=== PATIENT | male | born 1950 | race Two or more races ===

== ENCOUNTER 2016-10-14 09:04 | Inpatient (IN) | payer OTHER ==
[2016-10-14 09:11] VITALS: BMI 19.3
--- NOTE | 2016-10-14 15:14 | HP ---
CIWA Score - CIWA Score Nausea/Vomitin-No Nausea/No Vomiting Muscle Tremors: 4-Moderate,w/Arms Extend Anxiety: 4-Mod. Anxious/Guarded Agitation: 4-Moderately Restless Paroxysmal Sweats: 1-Minimal Palms Moist Orientation: 0-Oriented Tacttile Disturbances: 3-Moderate Itch/Numb/Burn Auditory Disturbances: 0-None Visual Disturbances: 0-None Headache: 0-None Present CIWA-Ar Total Score: 16 Admission ROS BHS - HPI Chief Complaint: DETOX TX FOR ALCOHOL DEPENDENCE Allergies/Adverse Reactions: Allergies Allergy/AdvReac Type Severity Reaction Status Date / Time No Known Allergies Allergy Verified 10/14/16 12:02 History of Present Illness: 66 Y/O MALE OF DECENT WITH A HX OF ALCOHOL AND COCAINE DEPENDENCE SEEKING DETOX TX. Exam Limitations: No Limitations - Ebola screening Have you traveled outside of the country in the last 21 days: No Have you had contact with anyone from an Ebola affected area: No Have you been sick,other than usual withdrawal symptoms: No - Review of Systems Constitutional: Chills, Loss of Appetite, Night Sweats, Changes in sleep, Unintentional Wgt. Loss EENT: reports: Blurred Vision, Tearing Respiratory: reports: No Symptoms reported Cardiac: reports: Lightheadedness GI: reports: Indigestion : reports: No Symptoms Reported Musculoskeletal: reports: No Symptoms Reported Integumentary: reports: No Symptoms Reported Neuro: reports: Headache, Tremors, Unsteady Gait, Dizziness Endocrine: reports: No Symptoms Reported Hematology: reports: Anemia (NOT CURRENTLY ON MED) Psychiatric: reports: Orientated x3, Anxious, Depressed Other Systems: Reviewed and Negative Patient History - Patient Medical History Hx Anemia: Yes (NO CURRENT MED) Hx Asthma: No Hx Chronic Obstructive Pulmonary Disease (COPD): No Hx Cardiac Disorders: Yes (CAD with CABGx3 in 1996 stent x2) Hx Hypertension: Yes (ON MED) Hx Hypercholesterolemia: Yes (LIPITOR) Hx Pacemaker: No HX Cerebrovascular Accident: No Hx Seizures: No Hx Diabetes: Yes (Type II DM-ON MED) Hx Gastrointestinal Disorders: Yes (HEARTBURN) Hx Genitourinary Disorders: No Hx Sexually Transmitted Disorders: No (DENIES) Hx Renal Disease (ESRD): No Hx Thyroid Disease: No Hx Human Immunodeficiency Virus (HIV): No (NEGATIVE HX) Hx Hepatitis C: Yes (RECENTLY TREATED X 3 MONTHS COURSE) Hx Depression: Yes Hx Suicide Attempt: No Hx Schizophrenia: No - Patient Surgical History Past Surgical History: Yes Hx Cardiac Surgery: Yes (CABGx3 in 1996 stent in 2003 and in 2010) Anesthesia Reaction: No - PPD History Previous Implant?: Yes Documented Results: Negative w/o proof Implanted On Prior [facility] Admission?: No PPD to be Administered?: Yes - Reproductive History Patient is a Female of Child Bearing Age (11 -55 yrs old): No (MALE) Patient : (N/A) - Smoking Cessation Smoking history: Current some day smoker Have you smoked in the past 12 months: Yes Aproximately how many cigarettes per day: 1 Hx Chewing Tobacco Use: No Initiated information on smoking cessation: Yes 'Breaking Loose' booklet given: 10/14/16 - Substance & Tx. History Hx Alcohol Use: Yes (VODKA) Hx Substance Use: (CRACK) Substance Use Type: Alcohol, Cocaine Hx Substance Use Treatment: Yes (LAST TX AT [facility]) - Substances Abused Alcohol Route: Oral Frequency: 3-6 times per week Amount used: 1 PINT VODKA Age of first use: 51 Date of Last Use: 10/12/16 Crack Route: Smoking Frequency: 3-6 times per week Amount used: $30 Age of first use: 34 Date of Last Use: 10/12/16 Family Disease History - Family Disease History Family Disease History: Diabetes: Grandparent (MGF-), Mother (HTN- ), Heart Disease: Father Admission Physical Exam BHS - Vital Signs Vital Signs: Vital Signs - 24 hr 10/14/16 09:10 Temperature 97.4 F L Pulse Rate 83 Respiratory 18 Rate Blood Pressure 145/76 - Physical General Appearance: Yes: Moderate Distress, Thin, Anxious HEENTM: Yes: EOMI, Normocephalic, DALE, Pharynx Normal Respiratory: Yes: Chest Non-Tender, Lungs Clear, Normal Breath Sounds, No Respiratory Distress Neck: Yes: No masses,lesions,Nodules, Supple, Trachea in good position Breast: Yes: Breast Exam Deferred Cardiology: Yes: Regular Rhythm, Regular Rate, S1, S2 Abdominal: Yes: Normal Bowel Sounds, Non Tender, Soft Genitourinary: Yes: Other (N/C) Musculoskeletal: Yes: full range of Motion, Gait Steady Extremities: Yes: Normal Range of Motion, Non-Tender Neurological: Yes: financial cost analyst II-XII NML intact, Fully Oriented, Alert Integumentary: Yes: Dry, Warm Lymphatic: Yes: Within Normal Limits - Diagnostic (1) Alcohol dependence with uncomplicated withdrawal Current Visit: Yes Status: Acute (2) Cocaine dependence, uncomplicated Current Visit: Yes Status: Acute (3) Type 2 diabetes mellitus Current Visit: Yes Status: Acute Qualifiers: Diabetes mellitus complication status: without complication (4) Hypertension Current Visit: Yes Status: Chronic Qualifiers: Hypertension type: essential hypertension Qualified Code(s): I10 - Essential (primary) hypertension (5) Hyperlipidemia Current Visit: Yes Status: Chronic (6) Hx of hepatitis C Current Visit: Yes Status: Chronic (7) Hx of CABG Current Visit: Yes Status: Chronic (8) S/P angioplasty with stent Current Visit: Yes Status: Chronic Cleared for Admission S - Detox or Rehab [facility] Level of Care: Medically Managed Detox Regimen/Protocol: Librium S Breath Alcohol Content Breath Alcohol Content: 0 Urine Drug Screen - Results Drug Screen Negative: No Urine Drug Screen Results: MAHAD-Cocaine
[2016-10-14] MEDS ORDERED: LOPERAMIDE HCL 2 MG CAPSULE PO PRN (15:29)
[2016-10-14] MEDS ORDERED: ACETAMINOPHEN 325 MG TABLET (FP) PO PRN (15:29)
[2016-10-14] MEDS ORDERED: P-EPHED 60MG/TRIPROLIDI 2.5MG TABLET PO PRN (15:29)
[2016-10-14] MEDS ORDERED: MAGNESIUM CITRATE 300 ML BOTTLE PO PRN (15:29)
[2016-10-14] MEDS ORDERED: guaiFENesin/D-METHORPHAN HB 10 ML UNIT-DOSE CUPS PO PRN (15:29)
[2016-10-14] MEDS ORDERED: IBUPROFEN 400 MG TABLET (FP) PO PRN (15:29)
[2016-10-14] MEDS ORDERED: NICOTINE POLACRILEX 2 MG GUM BUC PRN (15:29)
[2016-10-14] MEDS ORDERED: MAGNESIUM HYDROX 2400MG/30ML ORAL SUSPENSION 30 ML CUP PO PRN (15:29)
[2016-10-14] MEDS ORDERED: MAG HYDROX/AL HYDROX/SIMETH 30 ML UNIT-DOSE CUP PO PRN (15:29)
[2016-10-14] MEDS ORDERED: MENTHOL/PHENOL 1 EACH UD MM PRN (15:29)
[2016-10-14] MEDS ORDERED: chlordiazePOXIDE HCL 25 MG CAPSULE PO PRN (15:29)
[2016-10-14] MEDS ORDERED: chlordiazePOXIDE HCL 25 MG CAPSULE PO ONE (15:48)
[2016-10-14] MEDS: sitaGLIPtin PHOSPHATE 25 MG TABLET (FP) PO SCH (17:36)
[2016-10-14] MEDS: metFORMIN HCL 500 MG TABLET (FP) PO SCH (17:36)
[2016-10-14] MEDS: chlordiazePOXIDE HCL 25 MG CAPSULE PO SCH ×2 (17:36→22:22)
[2016-10-14 18:19] LABS: HIV 1 & 2 AB NEGATIVE; HIV 1 AGp24 NEGATIVE
[2016-10-14] MEDS: METOPROLOL TARTRATE 50 MG TABLET (FP) PO SCH (21:06)
[2016-10-14] MEDS ORDERED: diphenhydrAMINE HCL 50 MG CAPSULE PO PRN (22:00)
[2016-10-14] MEDS: THIAMINE HCL 100 MG TABLET (FP) PO SCH (22:22)
[2016-10-15] MEDS: sitaGLIPtin PHOSPHATE 25 MG TABLET (FP) PO SCH ×2 (07:34→17:27)
[2016-10-15] MEDS: metFORMIN HCL 500 MG TABLET (FP) PO SCH ×2 (07:34→17:26)
[2016-10-15] MEDS: chlordiazePOXIDE HCL 25 MG CAPSULE PO SCH ×4 (07:36→22:29)
[2016-10-15 07:42] LABS: URINE APPEARANCE SLCLOUDY; URINE BILIRUBIN NEGATIVE (NEGATIVE); URINE BLOOD NEGATIVE (NEGATIVE); URINE COLOR AMBER; URINE GLUCOSE (UA) NEGATIVE (NEGATIVE); URINE KETONE NEGATIVE (NEGATIVE); URINE LEUK ESTERASE NEGATIVE (NEGATIVE); URINE NITRITE NEGATIVE (NEGATIVE); URINE PROTEIN NEGATIVE (NEGATIVE); URINE UROBILINOGEN NEGATIVE mg/dL (0.2-1.0)
--- NOTE | 2016-10-15 09:26 | EKG ---
Test Reason : Blood Pressure : / mmHG Vent. Rate : 058 BPM Atrial Rate : 058 BPM P-R Int : 178 ms QRS Dur : 126 ms QT Int : 476 ms P-R-T Axes : 074 067 152 degrees QTc Int : 467 ms SINUS BRADYCARDIA LEFT BUNDLE BRANCH BLOCK ABNORMAL ECG NO PREVIOUS ECGS AVAILABLE Confirmed by CHAVEZ SANTIAGO MD ([id number]) on 10/15/2016 9:25:31 AM Referred By: Confirmed By:CHAVEZ SANTIAGO MD
--- NOTE | 2016-10-15 09:59 | CONSULT ---
[facility] Psychiatric Consult - Data Date of interview: 10/15/16 Admission source: [facility] Identifying data: Ms Michael is a 66 years old single male, unemployed on food stamp, domiciled seeking detox treatmentfor alcohol and cocaine Substance Abuse History: Reports history of alcohol and cocaine use. He started drinking alcohol at age 51, consumes one pint of vodka 3-6 times weekly. Last drink on 10/12/16. He started smoking cravk cocaine at age 34, consumes $30 worth 3-6times weekly. Last smoked on 10/12/16 Medical History: Significant for history of Anenia, CAD/CABG x2 with stent x2, HTN, Hyperlipidemia, GERD, type 2 DM, Hep C Psychiatric History: Reports being prescribed Paxil 10-12 years ago by a psychiatrist at [facility] for depression & anxiety. Claims that he stopped taking medication after 5 months due to relapse on alcohol and cocaine. Denies history of previous psychiatric hospitalization or suicidal attempt. At present, reports feeling depressed, anxious and sleeping porly. Requests to be ordered Ambien to which he responded well in the past Psychiatric Findings - Problem List ([place] 1, 2,3) (1) Substance induced mood disorder Current Visit: Yes Status: Acute (2) Alcohol dependence with uncomplicated withdrawal Current Visit: Yes Status: Acute (3) Cocaine dependence, uncomplicated Current Visit: Yes Status: Acute (4) Type 2 diabetes mellitus Current Visit: Yes Status: Acute Qualifiers: Diabetes mellitus complication status: without complication (5) Hx of CABG Current Visit: Yes Status: Chronic (6) Hx of hepatitis C Current Visit: Yes Status: Chronic (7) Hyperlipidemia Current Visit: Yes Status: Chronic (8) Hypertension Current Visit: Yes Status: Chronic Qualifiers: Hypertension type: essential hypertension Qualified Code(s): I10 - Essential (primary) hypertension (9) S/P angioplasty with stent Current Visit: Yes Status: Chronic - Initial Treatment Plan Initial Treatment Plan: 1) Start Ambien 10 mg po HS prn for insomnia. 2) Continue inpatient detoxification
[2016-10-15 10:19] LABS: MCH 32.4 pg (25.7-33.7); MCHC 33.9 g/dl (32.0-35.9); MEAN CELL VOLUME 95.5 fl (80-96); MEAN PLT VOLUME 9.7 fl (7.5-11.1); PLATELET COUNT 158 K/MM3 (134-434); RDW 13.3 % (11.9-15.9); WHITE BLOOD COUNT 6.8 K/mm3 (4.0-10.0)
[2016-10-15] MEDS: ATORVASTATIN CA 40 MG TABLET (FP) PO SCH (10:28)
[2016-10-15] MEDS: CLOPIDOGREL BISULFATE 75 MG TABLET (FP) PO SCH (10:28)
[2016-10-15] MEDS: METOPROLOL TARTRATE 50 MG TABLET (FP) PO SCH ×2 (10:28→22:29)
[2016-10-15] MEDS: RANOLAZINE E.R. 500 MG TABLET (FP) PO SCH (10:29)
[2016-10-15] MEDS: PRENATAL VITAMINS W/ FOLIC ACID TABLET (FP) PO SCH (10:29)
[2016-10-15] MEDS: ASPIRIN 81 MG CHEWABLE TABLETS PO SCH (10:29)
[2016-10-15] MEDS: ISOSORBIDE MONONITRATE 30 MG TAB.SR.24H (FP) PO SCH (10:29)
[2016-10-15 10:36] LABS: ALK PHOS 43 U/L (45-117); ANION GAP 11 (8-16); BILIRUBIN,TOTAL 0.7 mg/dL (0.2-1.0); CALCIUM 9.3 mg/dL (8.5-10.1); CO2 25 mmol/L (21-32); CREATININE 0.9 mg/dL (0.7-1.3); GLUCOSE,RANDOM 123 mg/dL (74-106); SGOT/AST 19 U/L (15-37); SGPT/ALT 27 U/L (12-78); TOT PROT 7.4 g/dl (6.4-8.2)
[2016-10-15 10:39] LABS: SICKLE CELL SCREEN NEGATIVE (NEGATIVE)
--- NOTE | 2016-10-15 11:23 | PN ---
[facility] CIWA - CIWA Score Nausea/Vomitin-No Nausea/No Vomiting Muscle Tremors: 4-Moderate,w/Arms Extend Anxiety: 4-Mod. Anxious/Guarded Agitation: 4-Moderately Restless Paroxysmal Sweats: 1-Minimal Palms Moist Orientation: 0-Oriented Tacttile Disturbances: 3-Moderate Itch/Numb/Burn Auditory Disturbances: 0-None Visual Disturbances: 0-None Headache: 0-None Present CIWA-Ar Total Score: 16 S Progress Note (SOAP) Subjective: C/O DIARRHEA, TREMORS, SWEATS, FATIGUE. Objective: 10/15/16 11:22 Vital Signs Temperature 96.2 F L 10/15/16 06:13 Pulse Rate 65 10/15/16 09:19 Respiratory Rate 18 10/15/16 09:19 Blood Pressure 143/71 10/15/16 09:19 O2 Sat by Pulse Oximetry (%) Laboratory Last Values WBC 6.8 K/mm3 (4.0-10.0) 10/15/16 06:00 RBC 3.92 M/mm3 (4.00-5.60) L 10/15/16 06:00 Hgb 12.7 GM/dL (11.7-16.9) 10/15/16 06:00 Hct 37.4 % (35.4-49) 10/15/16 06:00 MCV 95.5 fl (80-96) 10/15/16 06:00 MCH 32.4 pg (25.7-33.7) 10/15/16 06:00 MCHC 33.9 g/dl (32.0-35.9) 10/15/16 06:00 RDW 13.3 % (11.9-15.9) 10/15/16 06:00 Plt Count 158 K/MM3 (134-434) 10/15/16 06:00 MPV 9.7 fl (7.5-11.1) 10/15/16 06:00 Sickle Cell Screen Negative (NEGATIVE) 10/15/16 06:00 Sodium 137 mmol/L (136-145) 10/15/16 06:00 Potassium 4.5 mmol/L (3.5-5.1) 10/15/16 06:00 Chloride 101 mmol/L (98-107) 10/15/16 06:00 Carbon Dioxide 25 mmol/L (21-32) 10/15/16 06:00 Anion Gap 11 (8-16) 10/15/16 06:00 BUN 21 mg/dL (7-18) H 10/15/16 06:00 Creatinine 0.9 mg/dL (0.7-1.3) 10/15/16 06:00 Creat Clearance w eGFR > 60 (>60) 10/15/16 06:00 POC Glucometer 233 UNITS (()) 10/15/16 10:53 Random Glucose 123 mg/dL (74-106) H 10/15/16 06:00 Calcium 9.3 mg/dL (8.5-10.1) 10/15/16 06:00 Total Bilirubin 0.7 mg/dL (0.2-1.0) 10/15/16 06:00 AST 19 U/L (15-37) 10/15/16 06:00 ALT 27 U/L (12-78) 10/15/16 06:00 Alkaline Phosphatase 43 U/L (45-117) L 10/15/16 06:00 Total Protein 7.4 g/dl (6.4-8.2) 10/15/16 06:00 Albumin 4.0 g/dl (3.4-5.0) 10/15/16 06:00 Urine Color Anay 10/15/16 07:25 Urine Appearance Slcloudy 10/15/16 07:25 Urine pH 5.0 (5.0-8.0) 10/15/16 07:25 Urine Protein Negative (NEGATIVE) 10/15/16 07:25 Urine Glucose (UA) Negative (NEGATIVE) 10/15/16 07:25 Urine Ketones Negative (NEGATIVE) 10/15/16 07:25 Urine Blood Negative (NEGATIVE) 10/15/16 07:25 Urine Nitrite Negative (NEGATIVE) 10/15/16 07:25 Urine Bilirubin Negative (NEGATIVE) 10/15/16 07:25 Urine Urobilinogen Negative mg/dL (0.2-1.0) 10/15/16 07:25 Ur Leukocyte Esterase Negative (NEGATIVE) 10/15/16 07:25 HIV 1&2 Antibody Screen Negative 10/14/16 13:30 HIV P24 Antigen Negative 10/14/16 13:30 Assessment: 10/15/16 11:23 WITHDRAWAL SX Plan: CONTINUE DETOX
[2016-10-15] MEDS ORDERED: sitaGLIPtin PHOSPHATE 25 MG TABLET (FP) PO ONE (12:22)
[2016-10-15] MEDS ORDERED: metFORMIN HCL 500 MG TABLET (FP) PO ONE (12:22)
[2016-10-15] MEDS: THIAMINE HCL 100 MG TABLET (FP) PO SCH (22:29)
[2016-10-15] MEDS: ZOLPIDEM TARTRATE 10 MG TABLET (PARK CARE ONLY) PO PRN (22:30)
[2016-10-16] MEDS: chlordiazePOXIDE HCL 25 MG CAPSULE PO SCH ×2 (05:51→10:23)
[2016-10-16] MEDS: metFORMIN HCL 500 MG TABLET (FP) PO SCH ×2 (07:41→17:30)
[2016-10-16] MEDS: sitaGLIPtin PHOSPHATE 25 MG TABLET (FP) PO SCH ×2 (07:41→18:09)
[2016-10-16] MEDS: METOPROLOL TARTRATE 50 MG TABLET (FP) PO SCH ×2 (10:22→22:22)
[2016-10-16] MEDS: RANOLAZINE E.R. 500 MG TABLET (FP) PO SCH (10:22)
[2016-10-16] MEDS: PANTOPRAZOLE 40 MG TABLET (FP) PO SCH (10:23)
[2016-10-16] MEDS: CLOPIDOGREL BISULFATE 75 MG TABLET (FP) PO SCH (10:23)
[2016-10-16] MEDS: ATORVASTATIN CA 40 MG TABLET (FP) PO SCH (10:23)
[2016-10-16] MEDS: ISOSORBIDE MONONITRATE 30 MG TAB.SR.24H (FP) PO SCH (10:23)
[2016-10-16] MEDS: ASPIRIN 81 MG CHEWABLE TABLETS PO SCH (10:23)
[2016-10-16] MEDS: PRENATAL VITAMINS W/ FOLIC ACID TABLET (FP) PO SCH (10:24)
--- NOTE | 2016-10-16 15:06 | PN ---
[facility] CIWA - CIWA Score Nausea/Vomitin-No Nausea/No Vomiting Muscle Tremors: 4-Moderate,w/Arms Extend Anxiety: 4-Mod. Anxious/Guarded Agitation: 2 Paroxysmal Sweats: 4-Forehead w/Sweat Beads Orientation: 0-Oriented Tacttile Disturbances: 0-None Auditory Disturbances: 2-Mild Harshness/Frighten Visual Disturbances: 2-Mild Sensitivity Headache: 0-None Present CIWA-Ar Total Score: 18 S Progress Note (SOAP) Subjective: Interrupted sleep, Tremors, Anxious. Objective: PT. A & O X 3, OBSERVED AMBULATING ON UNIT. NO ACUTE DISTRESS. 10/16/16 15:04 Vital Signs Temperature 97.9 F 10/16/16 13:44 Pulse Rate 70 10/16/16 13:44 Respiratory Rate 18 10/16/16 13:44 Blood Pressure 94/60 10/16/16 13:44 O2 Sat by Pulse Oximetry (%) Laboratory Tests 10/14/16 10/14/16 10/14/16 12:23 13:30 17:35 WBC RBC Hgb Hct MCV MCH MCHC RDW Plt Count MPV Sickle Cell Screen Sodium Potassium Chloride Carbon Dioxide Anion Gap BUN Creatinine Creat Clearance w eGFR POC Glucometer 191 137 Random Glucose Calcium Total Bilirubin AST ALT Alkaline Phosphatase Total Protein Albumin Urine Color Urine Appearance Urine pH Ur Specific [place] Urine Protein Urine Glucose (UA) Urine Ketones Urine Blood Urine Nitrite Urine Bilirubin Urine Urobilinogen Ur Leukocyte Esterase RPR Titer HIV 1&2 Antibody Screen Negative HIV P24 Antigen Negative 10/15/16 10/15/16 10/15/16 05:47 06:00 06:00 WBC 6.8 RBC 3.92 L Hgb 12.7 Hct 37.4 MCV 95.5 MCH 32.4 MCHC 33.9 RDW 13.3 Plt Count 158 MPV 9.7 Sickle Cell Screen Negative Sodium 137 Potassium 4.5 Chloride 101 Carbon Dioxide 25 Anion Gap 11 BUN 21 H Creatinine 0.9 Creat Clearance w eGFR > 60 POC Glucometer 64 Random Glucose 123 H Calcium 9.3 Total Bilirubin 0.7 AST 19 ALT 27 Alkaline Phosphatase 43 L Total Protein 7.4 Albumin 4.0 Urine Color Urine Appearance Urine pH Ur Specific [place] Urine Protein Urine Glucose (UA) Urine Ketones Urine Blood Urine Nitrite Urine Bilirubin Urine Urobilinogen Ur Leukocyte Esterase RPR Titer HIV 1&2 Antibody Screen HIV P24 Antigen 10/15/16 10/15/16 10/15/16 06:00 07:25 07:26 WBC RBC Hgb Hct MCV MCH MCHC RDW Plt Count MPV Sickle Cell Screen Sodium Potassium Chloride Carbon Dioxide Anion Gap BUN Creatinine Creat Clearance w eGFR POC Glucometer 110 Random Glucose Calcium Total Bilirubin AST ALT Alkaline Phosphatase Total Protein Albumin Urine Color Anay Urine Appearance Slcloudy Urine pH 5.0 Ur Specific [place] 1.010 Urine Protein Negative Urine Glucose (UA) Negative Urine Ketones Negative Urine Blood Negative Urine Nitrite Negative Urine Bilirubin Negative Urine Urobilinogen Negative Ur Leukocyte Esterase Negative RPR Titer Nonreactive HIV 1&2 Antibody Screen HIV P24 Antigen 10/15/16 10/15/16 10/15/16 10:53 16:25 21:31 WBC RBC Hgb Hct MCV MCH MCHC RDW Plt Count MPV Sickle Cell Screen Sodium Potassium Chloride Carbon Dioxide Anion Gap BUN Creatinine Creat Clearance w eGFR POC Glucometer 233 145 120 Random Glucose Calcium Total Bilirubin AST ALT Alkaline Phosphatase Total Protein Albumin Urine Color Urine Appearance Urine pH Ur Specific [place] Urine Protein Urine Glucose (UA) Urine Ketones Urine Blood Urine Nitrite Urine Bilirubin Urine Urobilinogen Ur Leukocyte Esterase RPR Titer HIV 1&2 Antibody Screen HIV P24 Antigen 10/16/16 10/16/16 05:49 11:30 WBC RBC Hgb Hct MCV MCH MCHC RDW Plt Count MPV Sickle Cell Screen Sodium Potassium Chloride Carbon Dioxide Anion Gap BUN Creatinine Creat Clearance w eGFR POC Glucometer 116 199 Random Glucose Calcium Total Bilirubin AST ALT Alkaline Phosphatase Total Protein Albumin Urine Color Urine Appearance Urine pH Ur Specific [place] Urine Protein Urine Glucose (UA) Urine Ketones Urine Blood Urine Nitrite Urine Bilirubin Urine Urobilinogen Ur Leukocyte Esterase RPR Titer HIV 1&2 Antibody Screen HIV P24 Antigen labs noted. Assessment: 10/16/16 15:04 WITHDRAWAL SYMPTOMS. Plan: CONTINUE DETOX.
[2016-10-16] MEDS: chlordiazePOXIDE 5 MG CAPSULE PO SCH ×2 (18:08→22:21)
--- NOTE | 2016-10-16 21:25 | PN ---
[facility] Progress Note Note: call by nurse to evaluate patient with chest pain on arrival patient stated that he feel better pain subsided patient has triple by pass CABG in 1996 has angioplasty with stent in 2010,2011,08/04 all procedure done in [facility] follow up by patient access registrar regular at [facility],also has dm,htn,hyperlipidemia alcohol and cocaine dependence smoke 1 cigarette/day family history of heart problem ekg nsr lvh prolong qt no change from 10/14/16 pulse oximeter is 92 bp 141/75,p72,r18.t96.3 patient is lying comfortable in bed alert,oriented x3 heent normal neck no jvd heart normal heart sound lung clear,no wheezing abdomen soft,no distension,no pain or tenderness no calf tenderness impression chest pain treatment o2 by nasal canula 2l/min patient refused patient did not want to go for evaluation in er stated pain subsided close monitoring if pain recur need to be transferred to er for evaluation blood for cpk,troponin in am continue detox
[2016-10-16] MEDS: THIAMINE HCL 100 MG TABLET (FP) PO SCH (22:21)
[2016-10-16] MEDS: ZOLPIDEM TARTRATE 10 MG TABLET (PARK CARE ONLY) PO PRN (22:22)
[2016-10-17] MEDS: chlordiazePOXIDE 5 MG CAPSULE PO SCH ×2 (05:40→10:18)
[2016-10-17] MEDS: sitaGLIPtin PHOSPHATE 25 MG TABLET (FP) PO SCH ×2 (07:45→17:14)
[2016-10-17] MEDS: metFORMIN HCL 500 MG TABLET (FP) PO SCH ×2 (07:45→17:14)
[2016-10-17] MEDS: RANOLAZINE E.R. 500 MG TABLET (FP) PO SCH (10:18)
[2016-10-17] MEDS: ATORVASTATIN CA 40 MG TABLET (FP) PO SCH (10:18)
[2016-10-17] MEDS: PRENATAL VITAMINS W/ FOLIC ACID TABLET (FP) PO SCH (10:18)
[2016-10-17] MEDS: ASPIRIN 81 MG CHEWABLE TABLETS PO SCH (10:18)
[2016-10-17] MEDS: METOPROLOL TARTRATE 50 MG TABLET (FP) PO SCH ×2 (10:18→22:17)
[2016-10-17] MEDS: PANTOPRAZOLE 40 MG TABLET (FP) PO SCH (10:19)
[2016-10-17] MEDS: ISOSORBIDE MONONITRATE 30 MG TAB.SR.24H (FP) PO SCH (10:19)
[2016-10-17] MEDS: CLOPIDOGREL BISULFATE 75 MG TABLET (FP) PO SCH (10:20)
[2016-10-17 10:40] LABS: CPK 44 IU/L (39-308); TROPONIN I < 0.02 ng/ml (0.00-0.05)
--- NOTE | 2016-10-17 14:22 | PN ---
[facility] Progress Note (SOAP) Subjective: Tremor, chills, weakness, interrupted sleep, unsteady gait (refused cane, doesn' t want brief writer to order cane) Objective: 10/17/16 14:17 Last Vital Signs Temp Pulse Resp BP Pulse Ox 98.1 F 76 18 105/69 10/17/16 13:41 10/17/16 13:41 10/17/16 13:41 10/17/16 13:41 Laboratory Tests 10/14/16 10/14/16 10/14/16 12:23 13:30 17:35 WBC RBC Hgb Hct MCV MCH MCHC RDW Plt Count MPV Sickle Cell Screen Sodium Potassium Chloride Carbon Dioxide Anion Gap BUN Creatinine Creat Clearance w eGFR POC Glucometer 191 137 Random Glucose Calcium Total Bilirubin AST ALT Alkaline Phosphatase Creatine Kinase Troponin I Total Protein Albumin Urine Color Urine Appearance Urine pH Ur Specific [place] Urine Protein Urine Glucose (UA) Urine Ketones Urine Blood Urine Nitrite Urine Bilirubin Urine Urobilinogen Ur Leukocyte Esterase RPR Titer HIV 1&2 Antibody Screen Negative HIV P24 Antigen Negative 10/15/16 10/15/16 10/15/16 05:47 06:00 06:00 WBC 6.8 RBC 3.92 L Hgb 12.7 Hct 37.4 MCV 95.5 MCH 32.4 MCHC 33.9 RDW 13.3 Plt Count 158 MPV 9.7 Sickle Cell Screen Negative Sodium 137 Potassium 4.5 Chloride 101 Carbon Dioxide 25 Anion Gap 11 BUN 21 H Creatinine 0.9 Creat Clearance w eGFR > 60 POC Glucometer 64 Random Glucose 123 H Calcium 9.3 Total Bilirubin 0.7 AST 19 ALT 27 Alkaline Phosphatase 43 L Creatine Kinase Troponin I Total Protein 7.4 Albumin 4.0 Urine Color Urine Appearance Urine pH Ur Specific [place] Urine Protein Urine Glucose (UA) Urine Ketones Urine Blood Urine Nitrite Urine Bilirubin Urine Urobilinogen Ur Leukocyte Esterase RPR Titer HIV 1&2 Antibody Screen HIV P24 Antigen 10/15/16 10/15/16 10/15/16 06:00 07:25 07:26 WBC RBC Hgb Hct MCV MCH MCHC RDW Plt Count MPV Sickle Cell Screen Sodium Potassium Chloride Carbon Dioxide Anion Gap BUN Creatinine Creat Clearance w eGFR POC Glucometer 110 Random Glucose Calcium Total Bilirubin AST ALT Alkaline Phosphatase Creatine Kinase Troponin I Total Protein Albumin Urine Color Anay Urine Appearance Slcloudy Urine pH 5.0 Ur Specific [place] 1.010 Urine Protein Negative Urine Glucose (UA) Negative Urine Ketones Negative Urine Blood Negative Urine Nitrite Negative Urine Bilirubin Negative Urine Urobilinogen Negative Ur Leukocyte Esterase Negative RPR Titer Nonreactive HIV 1&2 Antibody Screen HIV P24 Antigen 10/15/16 10/15/16 10/15/16 10:53 16:25 21:31 WBC RBC Hgb Hct MCV MCH MCHC RDW Plt Count MPV Sickle Cell Screen Sodium Potassium Chloride Carbon Dioxide Anion Gap BUN Creatinine Creat Clearance w eGFR POC Glucometer 233 145 120 Random Glucose Calcium Total Bilirubin AST ALT Alkaline Phosphatase Creatine Kinase Troponin I Total Protein Albumin Urine Color Urine Appearance Urine pH Ur Specific [place] Urine Protein Urine Glucose (UA) Urine Ketones Urine Blood Urine Nitrite Urine Bilirubin Urine Urobilinogen Ur Leukocyte Esterase RPR Titer HIV 1&2 Antibody Screen HIV P24 Antigen 10/16/16 10/16/16 10/16/16 05:49 11:30 16:23 WBC RBC Hgb Hct MCV MCH MCHC RDW Plt Count MPV Sickle Cell Screen Sodium Potassium Chloride Carbon Dioxide Anion Gap BUN Creatinine Creat Clearance w eGFR POC Glucometer 116 199 165 Random Glucose Calcium Total Bilirubin AST ALT Alkaline Phosphatase Creatine Kinase Troponin I Total Protein Albumin Urine Color Urine Appearance Urine pH Ur Specific [place] Urine Protein Urine Glucose (UA) Urine Ketones Urine Blood Urine Nitrite Urine Bilirubin Urine Urobilinogen Ur Leukocyte Esterase RPR Titer HIV 1&2 Antibody Screen HIV P24 Antigen 10/17/16 10/17/16 10/17/16 05:39 07:45 07:45 WBC RBC Hgb Hct MCV MCH MCHC RDW Plt Count MPV Sickle Cell Screen Sodium Potassium Chloride Carbon Dioxide Anion Gap BUN Creatinine Creat Clearance w eGFR POC Glucometer 105 Random Glucose Calcium Total Bilirubin AST ALT Alkaline Phosphatase Creatine Kinase 42 44 Troponin I < 0.02 Total Protein Albumin Urine Color Urine Appearance Urine pH Ur Specific [place] Urine Protein Urine Glucose (UA) Urine Ketones Urine Blood Urine Nitrite Urine Bilirubin Urine Urobilinogen Ur Leukocyte Esterase RPR Titer HIV 1&2 Antibody Screen HIV P24 Antigen 10/17/16 11:05 WBC RBC Hgb Hct MCV MCH MCHC RDW Plt Count MPV Sickle Cell Screen Sodium Potassium Chloride Carbon Dioxide Anion Gap BUN Creatinine Creat Clearance w eGFR POC Glucometer 183 Random Glucose Calcium Total Bilirubin AST ALT Alkaline Phosphatase Creatine Kinase Troponin I Total Protein Albumin Urine Color Urine Appearance Urine pH Ur Specific [place] Urine Protein Urine Glucose (UA) Urine Ketones Urine Blood Urine Nitrite Urine Bilirubin Urine Urobilinogen Ur Leukocyte Esterase RPR Titer HIV 1&2 Antibody Screen HIV P24 Antigen Labs noted: bun 21 Assessment: 10/17/16 14:19 Withdrawal symptoms Noted with azotemia and unsteady gait due to withdrawal (patient denies using cane at home) Plan: Continue detox Azotemia: encouraged to drink lots of water Unsteady gait: fall precaution, patient refused cane stating he is fine
[2016-10-17] MEDS: chlordiazePOXIDE HCL 10 MG CAPSULE PO SCH ×2 (17:14→22:17)
[2016-10-17] MEDS: THIAMINE HCL 100 MG TABLET (FP) PO SCH (22:17)
[2016-10-17] MEDS: ZOLPIDEM TARTRATE 10 MG TABLET (PARK CARE ONLY) PO PRN (22:18)
[2016-10-18] MEDS: METOPROLOL TARTRATE 50 MG TABLET (FP) PO SCH ×2 (04:05→10:14)
[2016-10-18] MEDS ORDERED: NITROGLYCERIN SUBLINGUAL 1/150 0.4 MG TAB SL PRN (04:05)
--- NOTE | 2016-10-18 04:58 | PN ---
S Progress Note Note: MD'S NOTE: INFORMED AT ABOUT 4:00AM THAT THE PT. DEVELOPED CHEST PAIN AND CLAIMS THAT LOPRESSOR RELIEVES HIS PAIN. SUB: -HAVING TIGHTENING PAIN IN THE SUB-STERNAL REGION FOR SEVERAL HOURS.! IT IS AT 8/10 AND RADIATING TO THE JAW AND BOTH ARMS. MILD SOB+ -DENIES: PALPITATIONS, N/V, DIZZINESS OBJ: THE PT. IS ROJAS X 3, NOT DYSPNOEIC, NO CYANOSIS, NOT IN DISTRESS NO EDEMA NOTED V/S: 96.1F-76-16-147/89-02 SATS. 98% ON R/A S/E: CVS: -JVD, NL HEART SOUNDS, NO MURMURS LUNGS: VESICULAR BREATH SOUNDS, NO RALES, NO RHONCHI ABD: SOFT, NT, B.S.+ IMPRESSION: CHEST PAIN - SEC. TO: ANGINA PECTORIS KNOWN CASE OF EXTENSIVE CAD PLANS: -LOPRESSOR 200 MGS. PO WAS GIVEN (INSTEAD OF 10:00AM DOSE) -WITH ABOVE, THE PAIN HAS SUBSIDED! -EKG: NSR AT 90, LBBB AND NO NEW ST-T CHANGES NOTED WHEN COMPARED TO PREVIOUS EKG -NTG 0.4 MGS. - PRN - DOES NOT WANT IT -02 AT 2-4 L/NC/MT NOW AND PRN -WILL CONSIDER TO TRANSFER TO THE ER, IN THE EVENT OF RECURRENT EPISODES OF CHEST PAIN. -CLOSE MONITORING -WILL F/U: NEEDED PROVIDER: ALVIN SORIANO MD
[2016-10-18] MEDS: chlordiazePOXIDE HCL 10 MG CAPSULE PO SCH ×2 (05:39→11:45)
[2016-10-18] MEDS: sitaGLIPtin PHOSPHATE 25 MG TABLET (FP) PO SCH (07:14)
[2016-10-18] MEDS: metFORMIN HCL 500 MG TABLET (FP) PO SCH (07:14)
[2016-10-18 09:23] VITALS: BP 100/63; PULSE 74; TEMP 97.2
--- NOTE | 2016-10-18 09:58 | EKG ---
Test Reason : Blood Pressure : / mmHG Vent. Rate : 079 BPM Atrial Rate : 079 BPM P-R Int : 232 ms QRS Dur : 132 ms QT Int : 414 ms P-R-T Axes : 072 045 136 degrees QTc Int : 474 ms SINUS RHYTHM WITH 1ST DEGREE A-V BLOCK LEFT BUNDLE BRANCH BLOCK ABNORMAL ECG WHEN COMPARED WITH ECG OF 16-OCT-2016 19:50, NO SIGNIFICANT CHANGE WAS FOUND Confirmed by DINA REYES MD ([id number]) on 10/18/2016 9:58:08 AM Referred By: Confirmed By:DINA REYES MD
--- NOTE | 2016-10-18 09:59 | EKG ---
Test Reason : Blood Pressure : / mmHG Vent. Rate : 071 BPM Atrial Rate : 071 BPM P-R Int : 194 ms QRS Dur : 132 ms QT Int : 418 ms P-R-T Axes : 062 058 186 degrees QTc Int : 454 ms NORMAL SINUS RHYTHM LEFT BUNDLE BRANCH BLOCK ABNORMAL ECG WHEN COMPARED WITH ECG OF 14-OCT-2016 16:41, VENT. RATE HAS INCREASED Confirmed by DINA REYES MD ([id number]) on 10/18/2016 9:58:33 AM Referred By: Confirmed By:DINA REYES MD
[2016-10-18] MEDS: PRENATAL VITAMINS W/ FOLIC ACID TABLET (FP) PO SCH (10:13)
[2016-10-18] MEDS: PANTOPRAZOLE 40 MG TABLET (FP) PO SCH (10:13)
[2016-10-18] MEDS: ISOSORBIDE MONONITRATE 30 MG TAB.SR.24H (FP) PO SCH (10:13)
[2016-10-18] MEDS: CLOPIDOGREL BISULFATE 75 MG TABLET (FP) PO SCH (10:14)
[2016-10-18] MEDS: ATORVASTATIN CA 40 MG TABLET (FP) PO SCH (10:14)
[2016-10-18] MEDS: RANOLAZINE E.R. 500 MG TABLET (FP) PO SCH (10:14)
[2016-10-18] MEDS: ASPIRIN 81 MG CHEWABLE TABLETS PO SCH (10:14)
--- NOTE | 2016-10-18 11:59 | DS ---
[facility] Detox Discharge Summary Admission Date: 10/14/16 Discharge Date: 10/18/16 - History Present History: Alcohol Dependence, Cocaine Dependence Pertinent Past History: Type II DM HTN Hypercholesterolemia Hep C CABG S/P Angioplasty with Stent - Physical Exam Results Vital Signs: Vital Signs Temperature 97.2 F L 10/18/16 09:21 Pulse Rate 74 10/18/16 09:21 Respiratory Rate 16 10/18/16 09:21 Blood Pressure 100/63 10/18/16 09:21 O2 Sat by Pulse Oximetry (%) Pertinent Admission Physical Exam Findings: Withdrawal sx. Lab Results WBC 6.8 K/mm3 (4.0-10.0) 10/15/16 06:00 RBC 3.92 M/mm3 (4.00-5.60) L 10/15/16 06:00 Hgb 12.7 GM/dL (11.7-16.9) 10/15/16 06:00 Hct 37.4 % (35.4-49) 10/15/16 06:00 MCV 95.5 fl (80-96) 10/15/16 06:00 MCHC 33.9 g/dl (32.0-35.9) 10/15/16 06:00 RDW 13.3 % (11.9-15.9) 10/15/16 06:00 Plt Count 158 K/MM3 (134-434) 10/15/16 06:00 Sodium 137 mmol/L (136-145) 10/15/16 06:00 Potassium 4.5 mmol/L (3.5-5.1) 10/15/16 06:00 Chloride 101 mmol/L (98-107) 10/15/16 06:00 Carbon Dioxide 25 mmol/L (21-32) 10/15/16 06:00 Anion Gap 11 (8-16) 10/15/16 06:00 BUN 21 mg/dL (7-18) H 10/15/16 06:00 Creatinine 0.9 mg/dL (0.7-1.3) 10/15/16 06:00 Random Glucose 123 mg/dL (74-106) H 10/15/16 06:00 Calcium 9.3 mg/dL (8.5-10.1) 10/15/16 06:00 Laboratory Last Values WBC 6.8 K/mm3 (4.0-10.0) 10/15/16 06:00 RBC 3.92 M/mm3 (4.00-5.60) L 10/15/16 06:00 Hgb 12.7 GM/dL (11.7-16.9) 10/15/16 06:00 Hct 37.4 % (35.4-49) 10/15/16 06:00 MCV 95.5 fl (80-96) 10/15/16 06:00 MCH 32.4 pg (25.7-33.7) 10/15/16 06:00 MCHC 33.9 g/dl (32.0-35.9) 10/15/16 06:00 RDW 13.3 % (11.9-15.9) 10/15/16 06:00 Plt Count 158 K/MM3 (134-434) 10/15/16 06:00 MPV 9.7 fl (7.5-11.1) 10/15/16 06:00 Sickle Cell Screen Negative (NEGATIVE) 10/15/16 06:00 Sodium 137 mmol/L (136-145) 10/15/16 06:00 Potassium 4.5 mmol/L (3.5-5.1) 10/15/16 06:00 Chloride 101 mmol/L (98-107) 10/15/16 06:00 Carbon Dioxide 25 mmol/L (21-32) 10/15/16 06:00 Anion Gap 11 (8-16) 10/15/16 06:00 BUN 21 mg/dL (7-18) H 10/15/16 06:00 Creatinine 0.9 mg/dL (0.7-1.3) 10/15/16 06:00 Creat Clearance w eGFR > 60 (>60) 10/15/16 06:00 POC Glucometer 152 UNITS (()) 10/18/16 05:38 Random Glucose 123 mg/dL (74-106) H 10/15/16 06:00 Calcium 9.3 mg/dL (8.5-10.1) 10/15/16 06:00 Total Bilirubin 0.7 mg/dL (0.2-1.0) 10/15/16 06:00 AST 19 U/L (15-37) 10/15/16 06:00 ALT 27 U/L (12-78) 10/15/16 06:00 Alkaline Phosphatase 43 U/L (45-117) L 10/15/16 06:00 Creatine Kinase 44 IU/L (39-308) 10/17/16 07:45 Troponin I < 0.02 ng/ml (0.00-0.05) 10/17/16 07:45 Total Protein 7.4 g/dl (6.4-8.2) 10/15/16 06:00 Albumin 4.0 g/dl (3.4-5.0) 10/15/16 06:00 Urine Color Anay 10/15/16 07:25 Urine Appearance Slcloudy 10/15/16 07:25 Urine pH 5.0 (5.0-8.0) 10/15/16 07:25 Ur Specific [place] 1.010 (1.005-1.025) 10/15/16 07:25 Urine Protein Negative (NEGATIVE) 10/15/16 07:25 Urine Glucose (UA) Negative (NEGATIVE) 10/15/16 07:25 Urine Ketones Negative (NEGATIVE) 10/15/16 07:25 Urine Blood Negative (NEGATIVE) 10/15/16 07:25 Urine Nitrite Negative (NEGATIVE) 10/15/16 07:25 Urine Bilirubin Negative (NEGATIVE) 10/15/16 07:25 Urine Urobilinogen Negative mg/dL (0.2-1.0) 10/15/16 07:25 Ur Leukocyte Esterase Negative (NEGATIVE) 10/15/16 07:25 RPR Titer Nonreactive (NONREACTIVE) 10/15/16 06:00 HIV 1&2 Antibody Screen Negative 10/14/16 13:30 HIV P24 Antigen Negative 10/14/16 13:30 labs noted - Treatment Hospital Course: Detox Protocol Followed, Detoxed Safely, Responded well, Discharged Condition Good, Rehab Referral Accepted Patient has Accepted a Rehab Referral to: [facility] - Medication Discharge Medications: Ambulatory Orders Multivitamin [Poly-Vitamin] 1 each PO DAILY 10/14/16 Aspirin [ASA -] 81 mg PO DAILY #30 mg 10/18/16 Atorvastatin Calcium 40 mg PO DAILY #30 mg 10/18/16 Clopidogrel Bisulfate [Clopidogrel] 75 mg PO DAILY #30 mg 10/18/16 Isosorbide Mononitrate [Imdur -] 30 mg PO DAILY #30 mg 07/31/17 Metformin HCl [Glucophage -] 500 mg PO BID #60 mg 10/18/16 Metoprolol Tartrate [Lopressor] 100 mg PO HS #30 mg 10/18/16 Metoprolol Tartrate [Lopressor] 200 mg PO DAILY #60 mg 10/18/16 Ranolazine [Ranexa -] 1,000 mg PO DAILY #30 mg 10/18/16 Sitagliptin Phosphate [Januvia -] 25 mg PO BID #60 mg 10/18/16 - Diagnosis (1) Alcohol dependence with uncomplicated withdrawal Current Visit: Yes Status: Acute (2) Cocaine dependence, uncomplicated Current Visit: Yes Status: Acute (3) Substance induced mood disorder Current Visit: Yes Status: Acute (4) Type 2 diabetes mellitus Current Visit: Yes Status: Acute Qualifiers: Diabetes mellitus complication status: without complication Diabetes mellitus custodial insulin use: without custodial use Qualified Code(s): E11.9 - Type 2 diabetes mellitus without complications (5) Weight loss observed on examination Current Visit: Yes Status: Acute (6) Hx of CABG Current Visit: Yes Status: Chronic (7) Hx of hepatitis C Current Visit: Yes Status: Chronic (8) Hyperlipidemia Current Visit: Yes Status: Chronic (9) Hypertension Current Visit: Yes Status: Chronic Qualifiers: Hypertension type: essential hypertension Qualified Code(s): I10 - Essential (primary) hypertension (10) S/P angioplasty with stent Current Visit: Yes Status: Chronic - AMA Did Patient Leave Against Medical Advice: No
== END 2016-10-18 12:03 | disposition home or self-care (01) | DRG 897 ==
LOC: YASAS 09:04 → Y3N 13:08
PROVIDERS: ADMIT Internal Medicine; ATTEND Internal Medicine
PROC: HZ2ZZZZ Detoxification Services for Substance Abuse Treatment (ICD-10-PCS; principal; 2016-10-14)
DX: F10.230 Alcohol dependence with withdrawal, uncomplicated (principal); F14.20 Cocaine dependence, uncomplicated; F19.24 Other psychoactive substance dependence with psychoactive substance-induced mood disorder; E11.9 Type 2 diabetes mellitus without complications; E78.5 Hyperlipidemia, unspecified; I10 Essential (primary) hypertension; I25.10 Atherosclerotic heart disease of native coronary artery without angina pectoris; B18.2 Chronic viral hepatitis C; R07.9 Chest pain, unspecified; I20.8 Other forms of angina pectoris; R79.89 Other specified abnormal findings of blood chemistry; R26.81 Unsteadiness on feet; Z72.0 Tobacco use; Z79.01 Long term (current) use of anticoagulants; Z95.1 Presence of aortocoronary bypass graft; Z95.5 Presence of coronary angioplasty implant and graft; Z87.898 Personal history of other specified conditions
CPT/HCPCS: 36415; 80053; 81003; 84484; 85027; 85660; 86593; 87389; 93005; 93010

== ENCOUNTER 2016-10-19 13:47 | Inpatient (IN) | payer OTHER ==
[2016-10-19 14:23] VITALS: BMI 18.2
[2016-10-19] MEDS ORDERED: MAG HYDROX/AL HYDROX/SIMETH 30 ML UNIT-DOSE CUP PO PRN (15:36)
[2016-10-19] MEDS ORDERED: MAGNESIUM CITRATE 300 ML BOTTLE PO PRN (15:36)
[2016-10-19] MEDS ORDERED: LOPERAMIDE HCL 2 MG CAPSULE PO PRN (15:36)
[2016-10-19] MEDS ORDERED: hydrOXYzine PAMOATE 25 MG CAPSULE (FP) PO PRN (15:36)
[2016-10-19] MEDS ORDERED: guaiFENesin/D-METHORPHAN HB 10 ML UNIT-DOSE CUPS PO PRN (15:36)
[2016-10-19] MEDS ORDERED: MAGNESIUM HYDROX 2400MG/30ML ORAL SUSPENSION 30 ML CUP PO PRN (15:36)
[2016-10-19] MEDS ORDERED: IBUPROFEN 400 MG TABLET (FP) PO PRN (15:36)
[2016-10-19] MEDS ORDERED: P-EPHED 60MG/TRIPROLIDI 2.5MG TABLET PO PRN (15:36)
[2016-10-19] MEDS ORDERED: diphenhydrAMINE HCL 50 MG CAPSULE PO PRN (15:36)
--- NOTE | 2016-10-19 15:36 | HP ---
VENECIA WASHINGTON Rehab Assess/Revision - Admission History Admitted to Rehab from: [facility] (COMPLETED DETOX ON 10/18/16) Date of Admission to Rehab: 10/19/16 - Vital signs Vital Signs: Vital Signs Period Temp Pulse Resp BP Sys/Goins Pulse Ox Last 24 Hr 97.1 F 66 20 106/57 - Findings Detox History & Physical reviewed: Yes Concur with findings: Yes Comments/Additional Findings: PT RETURNED TODAY TO FOLLOW UP WITH REHAB AFTERCARE. ALERT O X 3. NAD. ADMIT TO REHAB.
[2016-10-19] MEDS: sitaGLIPtin PHOSPHATE 25 MG TABLET (FP) PO SCH (18:16)
[2016-10-19] MEDS: metFORMIN HCL 500 MG TABLET (FP) PO SCH (18:16)
[2016-10-19] MEDS: METOPROLOL TARTRATE 50 MG TABLET (FP) PO SCH (21:13)
[2016-10-19] MEDS: ACETAMINOPHEN 325 MG TABLET (FP) PO PRN (21:13)
[2016-10-19] MEDS: THIAMINE HCL 100 MG TABLET (FP) PO SCH (21:13)
[2016-10-19] MEDS ORDERED: ATORVASTATIN CA 40 MG TABLET (FP) PO SCH (22:00)
[2016-10-19 23:35] LABS: URINE APPEARANCE CLEAR; URINE BILIRUBIN NEGATIVE (NEGATIVE); URINE BLOOD NEGATIVE (NEGATIVE); URINE COLOR YELLOW; URINE GLUCOSE (UA) NEGATIVE (NEGATIVE); URINE KETONE NEGATIVE (NEGATIVE); URINE LEUK ESTERASE NEGATIVE (NEGATIVE); URINE NITRITE NEGATIVE (NEGATIVE); URINE PROTEIN NEGATIVE (NEGATIVE); URINE UROBILINOGEN NEGATIVE mg/dL (0.2-1.0)
--- NOTE | 2016-10-20 06:43 | HP ---
Psychiatrist Admission - Data Date of interview: 10/20/16 Admission source: 3N Identifying data: This is the first [facility] admission for this 66 years old single - male, unemployed on social security, domiciled Medical History: Significant for history of Anenia, CAD/CABG x2 with stent x2, HTN, Hyperlipidemia, GERD, type 2 DM, Hep C Psychiatric History: Reports receiving psychiatric treatment for depression and anxiety at [facility] approximately 12 years ago. Claims that psychosocial stressors and addiction were the culprit for his depression. He was tried on Paxil to which he experienced adverse-effects including sedation. He was tried on another medication. He stopped that medication after 5 months when he relapsed. Reports one psychiatric inpatient hospitalization at [facility] 5 years ago for suicidal attempt. Claims he took 8 or 9 Trazadone pills after his dog . He was kept for 13 days and prescribed medication. Told news writer that he did not follow up after he was discharged. At present, reports feeling mildly depressed and sleeping poorly.Denies suicidal ideations Physical/Sexual Abuse/Trauma History: Denies history of emotional, physical or sexual abuse as well as DV relationship Additional Comment: No criminal history Vital Signs: Vital Signs - 24 hr 10/19/16 10/20/16 10/20/16 14:21 00:30 03:30 Temperature 97.1 F L Pulse Rate 66 Respiratory 20 20 20 Rate Blood Pressure 106/57 Allergies/Adverse Reactions: Allergies Allergy/AdvReac Type Severity Reaction Status Date / Time No Known Allergies Allergy Verified 10/19/16 16:32 Date of last physical exam: 10/14/16 Concur with the findings of this exam: Yes - Substance Abuse/Tx History Hx Alcohol Use: Yes Hx Substance Use: Yes Substance Use Type: Alcohol (Started drinking alcohol at age 51, consumes one pint of vodka 3-6 times weekly. Last drink on 10/12/16), Cocaine (Started smoking crack cocaine at age 34, consumes $30 worth 3-6 times weekly. Last Smoked on 10/12/16) Hx Substance Use Treatment: Yes (3-4 previous inpt detox & 2 inpt rehab([facility]; [facility]) - Admission Criteria Previous failed treatment: No Poor recovery environment: Yes Comorbidities: Yes Lacks judgement: Yes Mental Status Exam - Mental Status Exam Alert and Oriented to: Time, Place, Person Cognitive Function: Fair Patient Appearance: Well Groomed Mood: Depressed (Mildly) Affect: Constricted Patient Behavior: Cooperative Speech Pattern: Clear Voice Loudness: Normal Thought Process: Intact Thought Disorder: Not Present Hallucinations: Denies Suicidal Ideation: Denies Homicidal Ideation: Denies Insight/Judgement: Fair Sleep: Poorly Appetite: Fair Muscle strength/Tone: Normal Gait/Station: Normal Psychiatric Findings - Problem List ([place] 1, 2,3) (1) Alcohol dependence Current Visit: Yes Status: Acute (2) Cocaine dependence Current Visit: Yes Status: Acute (3) Substance induced mood disorder Current Visit: Yes Status: Chronic (4) Hyperlipidemia Current Visit: Yes Status: Chronic (5) Hypertension Current Visit: Yes Status: Chronic Qualifiers: Hypertension type: essential hypertension Qualified Code(s): I10 - Essential (primary) hypertension (6) Type 2 diabetes mellitus Current Visit: Yes Status: Chronic Qualifiers: Diabetes mellitus complication status: without complication (7) Hx of hepatitis C Current Visit: Yes Status: Chronic (8) Hx of CABG Current Visit: Yes Status: Chronic (9) S/P angioplasty with stent Current Visit: Yes Status: Chronic (10) Substance-induced sleep disorder Current Visit: Yes Status: Acute - Initial Treatment Plan Initial Treatment Plan: 1) Start belsomra 10 mg po HS prn for insmonia. 2) Monitor progress
[2016-10-20] MEDS: metFORMIN HCL 500 MG TABLET (FP) PO SCH ×2 (07:47→17:00)
[2016-10-20] MEDS: sitaGLIPtin PHOSPHATE 25 MG TABLET (FP) PO SCH ×2 (07:47→17:00)
[2016-10-20] MEDS: ISOSORBIDE MONONITRATE 30 MG TAB.SR.24H (FP) PO SCH (09:50)
[2016-10-20] MEDS: ASPIRIN 81 MG CHEWABLE TABLETS PO SCH (09:50)
[2016-10-20] MEDS: PRENATAL VITAMINS W/ FOLIC ACID TABLET (FP) PO SCH (09:50)
[2016-10-20] MEDS: METOPROLOL TARTRATE 50 MG TABLET (FP) PO SCH ×2 (09:50→21:37)
[2016-10-20] MEDS: RANOLAZINE E.R. 500 MG TABLET (FP) PO SCH (09:50)
[2016-10-20] MEDS: CLOPIDOGREL BISULFATE 75 MG TABLET (FP) PO SCH (09:51)
--- NOTE | 2016-10-20 10:49 | EKG ---
Test Reason : Blood Pressure : / mmHG Vent. Rate : 063 BPM Atrial Rate : 063 BPM P-R Int : 254 ms QRS Dur : 104 ms QT Int : 434 ms P-R-T Axes : 028 041 096 degrees QTc Int : 444 ms SINUS RHYTHM WITH 1ST DEGREE A-V BLOCK OTHERWISE NORMAL ECG WHEN COMPARED WITH ECG OF 18-OCT-2016 03:31, LEFT BUNDLE BRANCH BLOCK IS NO LONGER PRESENT Confirmed by ISAAC WASHINGTON, BOY ([id number]) on 10/20/2016 10:48:39 AM Referred By: Confirmed By:BOY GRAY MD
[2016-10-20] MEDS: MENTHOL/PHENOL 1 EACH UD MM PRN ×2 (14:29→21:39)
[2016-10-20] MEDS: THIAMINE HCL 100 MG TABLET (FP) PO SCH (21:36)
[2016-10-20] MEDS: ATORVASTATIN CA 40 MG TABLET (FP) PO SCH (21:37)
[2016-10-20] MEDS ORDERED: SUVOREXANT 10 MG TABLET PO PRN (22:00)
[2016-10-21] MEDS ORDERED: PT OWN MED DRAWER 7, Y5N ONE (03:29)
[2016-10-21] MEDS: metFORMIN HCL 500 MG TABLET (FP) PO SCH ×2 (06:10→16:20)
[2016-10-21] MEDS: METOPROLOL TARTRATE 50 MG TABLET (FP) PO SCH ×2 (09:50→21:41)
[2016-10-21] MEDS: ASPIRIN 81 MG CHEWABLE TABLETS PO SCH (09:54)
[2016-10-21] MEDS: PRENATAL VITAMINS W/ FOLIC ACID TABLET (FP) PO SCH (09:54)
[2016-10-21] MEDS: RANOLAZINE E.R. 500 MG TABLET (FP) PO SCH (10:34)
[2016-10-21] MEDS: sitaGLIPtin PHOSPHATE 25 MG TABLET (FP) PO SCH ×2 (10:34→16:20)
[2016-10-21] MEDS: CLOPIDOGREL BISULFATE 75 MG TABLET (FP) PO SCH (10:34)
[2016-10-21] MEDS: ISOSORBIDE MONONITRATE 30 MG TAB.SR.24H (FP) PO SCH (10:34)
[2016-10-21] MEDS: ACETAMINOPHEN 325 MG TABLET (FP) PO PRN (20:19)
[2016-10-21] MEDS: THIAMINE HCL 100 MG TABLET (FP) PO SCH (21:41)
[2016-10-21] MEDS: ATORVASTATIN CA 40 MG TABLET (FP) PO SCH (21:41)
[2016-10-22] MEDS: sitaGLIPtin PHOSPHATE 25 MG TABLET (FP) PO SCH ×2 (06:26→16:54)
[2016-10-22] MEDS: metFORMIN HCL 500 MG TABLET (FP) PO SCH ×2 (06:26→16:54)
[2016-10-22] MEDS: ACETAMINOPHEN 325 MG TABLET (FP) PO PRN ×2 (08:45→22:11)
[2016-10-22] MEDS: MENTHOL/PHENOL 1 EACH UD MM PRN ×2 (08:46→21:35)
[2016-10-22] MEDS: ISOSORBIDE MONONITRATE 30 MG TAB.SR.24H (FP) PO SCH (09:41)
[2016-10-22] MEDS: METOPROLOL TARTRATE 50 MG TABLET (FP) PO SCH ×2 (09:41→21:12)
[2016-10-22] MEDS: CLOPIDOGREL BISULFATE 75 MG TABLET (FP) PO SCH (09:41)
[2016-10-22] MEDS: PRENATAL VITAMINS W/ FOLIC ACID TABLET (FP) PO SCH (09:41)
[2016-10-22] MEDS: ASPIRIN 81 MG CHEWABLE TABLETS PO SCH (09:41)
[2016-10-22] MEDS: RANOLAZINE E.R. 500 MG TABLET (FP) PO SCH (10:10)
[2016-10-22] MEDS: THIAMINE HCL 100 MG TABLET (FP) PO SCH (21:11)
[2016-10-22] MEDS: ATORVASTATIN CA 40 MG TABLET (FP) PO SCH (21:11)
[2016-10-23] MEDS: sitaGLIPtin PHOSPHATE 25 MG TABLET (FP) PO SCH ×2 (07:27→16:52)
[2016-10-23] MEDS: metFORMIN HCL 500 MG TABLET (FP) PO SCH ×2 (07:27→16:51)
[2016-10-23] MEDS: PRENATAL VITAMINS W/ FOLIC ACID TABLET (FP) PO SCH (09:53)
[2016-10-23] MEDS: ASPIRIN 81 MG CHEWABLE TABLETS PO SCH (09:53)
[2016-10-23] MEDS: RANOLAZINE E.R. 500 MG TABLET (FP) PO SCH (09:53)
[2016-10-23] MEDS: ISOSORBIDE MONONITRATE 30 MG TAB.SR.24H (FP) PO SCH (09:53)
[2016-10-23] MEDS: METOPROLOL TARTRATE 50 MG TABLET (FP) PO SCH ×2 (09:54→21:22)
[2016-10-23] MEDS: CLOPIDOGREL BISULFATE 75 MG TABLET (FP) PO SCH (09:54)
[2016-10-23] MEDS: ATORVASTATIN CA 40 MG TABLET (FP) PO SCH (21:22)
[2016-10-23] MEDS: THIAMINE HCL 100 MG TABLET (FP) PO SCH (21:22)
[2016-10-23] MEDS: MENTHOL/PHENOL 1 EACH UD MM PRN (21:23)
[2016-10-24] MEDS: sitaGLIPtin PHOSPHATE 25 MG TABLET (FP) PO SCH ×2 (07:22→16:52)
[2016-10-24] MEDS: metFORMIN HCL 500 MG TABLET (FP) PO SCH ×2 (07:22→16:52)
[2016-10-24] MEDS: ARTIFICIAL TEARS (POLYVINYL ALCOHOL 1.4%) OPTH DROPS OU PRN ×2 (07:55→16:53)
[2016-10-24] MEDS: RANOLAZINE E.R. 500 MG TABLET (FP) PO SCH (09:48)
[2016-10-24] MEDS: ASPIRIN 81 MG CHEWABLE TABLETS PO SCH (09:48)
[2016-10-24] MEDS: ISOSORBIDE MONONITRATE 30 MG TAB.SR.24H (FP) PO SCH (09:48)
[2016-10-24] MEDS: CLOPIDOGREL BISULFATE 75 MG TABLET (FP) PO SCH (09:48)
[2016-10-24] MEDS: PRENATAL VITAMINS W/ FOLIC ACID TABLET (FP) PO SCH (09:48)
[2016-10-24] MEDS: METOPROLOL TARTRATE 50 MG TABLET (FP) PO SCH ×2 (09:49→21:12)
[2016-10-24] MEDS: MENTHOL/PHENOL 1 EACH UD MM PRN ×2 (09:51→16:54)
[2016-10-24] MEDS: ATORVASTATIN CA 40 MG TABLET (FP) PO SCH (21:12)
[2016-10-24] MEDS: THIAMINE HCL 100 MG TABLET (FP) PO SCH (21:12)
[2016-10-25] MEDS: metFORMIN HCL 500 MG TABLET (FP) PO SCH ×2 (06:08→16:48)
[2016-10-25] MEDS: sitaGLIPtin PHOSPHATE 25 MG TABLET (FP) PO SCH ×2 (06:08→16:48)
[2016-10-25] MEDS: METOPROLOL TARTRATE 50 MG TABLET (FP) PO SCH ×2 (09:45→21:06)
[2016-10-25] MEDS: CLOPIDOGREL BISULFATE 75 MG TABLET (FP) PO SCH (09:45)
[2016-10-25] MEDS: PRENATAL VITAMINS W/ FOLIC ACID TABLET (FP) PO SCH (09:45)
[2016-10-25] MEDS: RANOLAZINE E.R. 500 MG TABLET (FP) PO SCH (09:45)
[2016-10-25] MEDS: ARTIFICIAL TEARS (POLYVINYL ALCOHOL 1.4%) OPTH DROPS OU PRN ×2 (09:45→16:49)
[2016-10-25] MEDS: ISOSORBIDE MONONITRATE 30 MG TAB.SR.24H (FP) PO SCH (09:45)
[2016-10-25] MEDS: ASPIRIN 81 MG CHEWABLE TABLETS PO SCH (09:45)
[2016-10-25] MEDS: MENTHOL/PHENOL 1 EACH UD MM PRN ×2 (09:48→16:50)
[2016-10-25] MEDS: ATORVASTATIN CA 40 MG TABLET (FP) PO SCH (21:06)
[2016-10-25] MEDS: THIAMINE HCL 100 MG TABLET (FP) PO SCH (21:06)
[2016-10-26] MEDS: metFORMIN HCL 500 MG TABLET (FP) PO SCH ×2 (07:00→17:13)
[2016-10-26] MEDS: sitaGLIPtin PHOSPHATE 25 MG TABLET (FP) PO SCH ×2 (07:01→17:13)
[2016-10-26] MEDS: ASPIRIN 81 MG CHEWABLE TABLETS PO SCH (09:52)
[2016-10-26] MEDS: CLOPIDOGREL BISULFATE 75 MG TABLET (FP) PO SCH (09:53)
[2016-10-26] MEDS: METOPROLOL TARTRATE 50 MG TABLET (FP) PO SCH ×2 (09:53→21:07)
[2016-10-26] MEDS: RANOLAZINE E.R. 500 MG TABLET (FP) PO SCH (09:53)
[2016-10-26] MEDS: ARTIFICIAL TEARS (POLYVINYL ALCOHOL 1.4%) OPTH DROPS OU PRN ×2 (09:53→21:09)
[2016-10-26] MEDS: ISOSORBIDE MONONITRATE 30 MG TAB.SR.24H (FP) PO SCH (09:53)
[2016-10-26] MEDS: MENTHOL/PHENOL 1 EACH UD MM PRN ×2 (09:56→21:10)
[2016-10-26] MEDS: PRENATAL VITAMINS W/ FOLIC ACID TABLET (FP) PO SCH (10:00)
[2016-10-26] MEDS: ATORVASTATIN CA 40 MG TABLET (FP) PO SCH (21:07)
[2016-10-26] MEDS: THIAMINE HCL 100 MG TABLET (FP) PO SCH (21:07)
[2016-10-27] MEDS: ARTIFICIAL TEARS (POLYVINYL ALCOHOL 1.4%) OPTH DROPS OU PRN ×2 (06:16→16:55)
[2016-10-27] MEDS: metFORMIN HCL 500 MG TABLET (FP) PO SCH ×2 (06:17→16:53)
[2016-10-27] MEDS: sitaGLIPtin PHOSPHATE 25 MG TABLET (FP) PO SCH ×2 (06:17→16:53)
[2016-10-27] MEDS: RANOLAZINE E.R. 500 MG TABLET (FP) PO SCH (09:57)
[2016-10-27] MEDS: ISOSORBIDE MONONITRATE 30 MG TAB.SR.24H (FP) PO SCH (09:57)
[2016-10-27] MEDS: CLOPIDOGREL BISULFATE 75 MG TABLET (FP) PO SCH (09:57)
[2016-10-27] MEDS: METOPROLOL TARTRATE 50 MG TABLET (FP) PO SCH ×2 (09:58→21:21)
[2016-10-27] MEDS: ASPIRIN 81 MG CHEWABLE TABLETS PO SCH (09:58)
[2016-10-27] MEDS: PRENATAL VITAMINS W/ FOLIC ACID TABLET (FP) PO SCH (09:58)
[2016-10-27] MEDS: MENTHOL/PHENOL 1 EACH UD MM PRN ×2 (10:00→16:57)
[2016-10-27] MEDS: ATORVASTATIN CA 40 MG TABLET (FP) PO SCH (21:21)
[2016-10-27] MEDS: THIAMINE HCL 100 MG TABLET (FP) PO SCH (21:21)
[2016-10-28] MEDS: metFORMIN HCL 500 MG TABLET (FP) PO SCH ×2 (07:13→16:49)
[2016-10-28] MEDS: sitaGLIPtin PHOSPHATE 25 MG TABLET (FP) PO SCH ×2 (07:13→16:49)
[2016-10-28] MEDS: RANOLAZINE E.R. 500 MG TABLET (FP) PO SCH (09:57)
[2016-10-28] MEDS: ISOSORBIDE MONONITRATE 30 MG TAB.SR.24H (FP) PO SCH (09:58)
[2016-10-28] MEDS: METOPROLOL TARTRATE 50 MG TABLET (FP) PO SCH ×2 (09:58→21:05)
[2016-10-28] MEDS: ASPIRIN 81 MG CHEWABLE TABLETS PO SCH (09:58)
[2016-10-28] MEDS: PRENATAL VITAMINS W/ FOLIC ACID TABLET (FP) PO SCH (09:58)
[2016-10-28] MEDS: CLOPIDOGREL BISULFATE 75 MG TABLET (FP) PO SCH (09:58)
[2016-10-28] MEDS: MENTHOL/PHENOL 1 EACH UD MM PRN ×2 (10:00→16:50)
[2016-10-28] MEDS: ARTIFICIAL TEARS (POLYVINYL ALCOHOL 1.4%) OPTH DROPS OU PRN ×2 (10:01→16:50)
[2016-10-28] MEDS: ATORVASTATIN CA 40 MG TABLET (FP) PO SCH (21:05)
[2016-10-28] MEDS: THIAMINE HCL 100 MG TABLET (FP) PO SCH (21:05)
[2016-10-29] MEDS: ARTIFICIAL TEARS (POLYVINYL ALCOHOL 1.4%) OPTH DROPS OU PRN (06:12)
[2016-10-29] MEDS: sitaGLIPtin PHOSPHATE 25 MG TABLET (FP) PO SCH (06:58)
[2016-10-29] MEDS: metFORMIN HCL 500 MG TABLET (FP) PO SCH (06:58)
[2016-10-29] MEDS: ISOSORBIDE MONONITRATE 30 MG TAB.SR.24H (FP) PO SCH (09:53)
[2016-10-29] MEDS: PRENATAL VITAMINS W/ FOLIC ACID TABLET (FP) PO SCH (09:53)
[2016-10-29] MEDS: RANOLAZINE E.R. 500 MG TABLET (FP) PO SCH (09:53)
[2016-10-29] MEDS: METOPROLOL TARTRATE 50 MG TABLET (FP) PO SCH (09:54)
[2016-10-29] MEDS: CLOPIDOGREL BISULFATE 75 MG TABLET (FP) PO SCH (09:54)
[2016-10-29] MEDS: ASPIRIN 81 MG CHEWABLE TABLETS PO SCH (09:54)
[2016-10-29] MEDS: MENTHOL/PHENOL 1 EACH UD MM PRN (09:57)
[2016-10-29 11:05] VITALS: BP 136/88; PULSE 69; TEMP 96.7
--- NOTE | 2016-10-29 14:45 | PN ---
Psychiatric Progress Note Vital Signs: Vital Signs Period Temp Pulse Resp BP Sys/Goins Pulse Ox Last 24 Hr 96.7 F-97.8 F 63-69 18-18 136-144/63-88 Date of Session: 10/29/16 Chief Complaint:: Discharge Note HPI: Patient addressing Alcohol and Cocaine Dependence comorbid with Substance- Induced Mood Disorder and Substance-Induced Sleep Disorder ROS: HTN, Hyperlipidemia, type 2 DM, Hep C, CAD were medically managed Current Medications: Active Medications Generic Name Dose Route Start Last Admin Trade Name Freq PRN Reason Stop Dose Admin Acetaminophen 650 mg 10/19/16 15:36 10/22/16 22:11 Tylenol - PO 650 mg Q4H PRN Administration PAIN Al Hydroxide/Mg Hydroxide 30 ml 10/19/16 15:36 10/24/16 22:36 Mylanta Oral Suspension - PO 30 ml Q6H PRN Administration DYSPEPSIA Artificial Tears 1 drop 10/23/16 07:30 10/29/16 06:12 Artificial Tears OU 1 drop Q6H PRN Administration DRY EYES Aspirin 81 mg 10/20/16 10:00 10/29/16 09:54 Asa - PO 81 mg DAILY MAURICIO Administration Atorvastatin Calcium 40 mg 10/20/16 22:00 10/28/16 21:05 Lipitor - PO 40 mg HS MAURICIO Administration Clopidogrel Bisulfate 75 mg 10/20/16 10:00 10/29/16 09:54 Plavix - PO 75 mg DAILY MAURICIO Administration Diphenhydramine HCl 50 mg 10/19/16 15:36 Benadryl - PO HSMR1 PRN INSOMNIA Eucalyptus/Menthol/Phenol/Sorbitol 1 each 10/19/16 15:36 10/29/16 09:57 Cepastat Lozenge - MM 1 each Q4H PRN Administration SORE THROAT Guaifenesin 10 ml 10/19/16 15:36 10/23/16 09:56 Robitussin Dm - PO 10 ml Q6H PRN Administration COUGH Hydroxyzine Pamoate 25 mg 10/19/16 15:36 Vistaril - PO Q4H PRN AGITATION Isosorbide Mononitrate 30 mg 10/20/16 10:00 10/29/16 09:53 Imdur - PO 30 mg DAILY MAURICIO Administration Loperamide HCl 4 mg 10/19/16 15:36 Imodium - PO Q6H PRN DIARRHEA Magnesium Citrate 300 ml 10/19/16 15:36 Citroma - PO Q48H PRN CONSTIPATION Magnesium Hydroxide 30 ml 10/19/16 15:36 Milk Of Magnesia - PO DAILY PRN CONSTIPATION Metformin HCl 500 mg 10/19/16 16:30 10/29/16 06:58 Glucophage - PO 500 mg BID@0700,1630 MAURICIO Administration Metoprolol Tartrate 200 mg 10/28/16 22:00 10/29/16 09:54 Lopressor - PO 200 mg BID MAURICIO Administration Multivit/Folic Acid/Iron 1 tab 10/20/16 10:00 10/29/16 09:53 Vitamins (Sjr) - PO 1 tab DAILY MAURICIO Administration Pseudoephedrine/Triprolidine 1 combo 10/19/16 15:36 Actifed - PO TID PRN NASAL CONGESTION Ranolazine 1,000 mg 10/20/16 10:00 10/29/16 09:53 Ranexa - PO 1,000 mg DAILY MAURICIO Administration Sitagliptin Phosphate 25 mg 10/19/16 16:30 10/29/16 06:58 Januvia - PO 25 mg BIDAC MAURICIO Administration Thiamine HCl 100 mg 10/19/16 22:00 10/28/16 21:05 Vitamin B1 - PO 100 mg HS MAURICIO Administration Current Side Effect: No Lab tests ordered: Yes Lab tests reviewed: Yes Provider note:: Patient has completed this program today. He has partially met his treatment goals and will continue to address his issues in outpatient treatment at [facility]. He verbalized understanding of the negative consequences of his addiction and told signwriter that from his participation in this program he has learned the importance of compliance to outpatient treatment as well as utilizing the skills learned. He is stable for discharge today Total face to face time:: 35 Mental Status Exam - Mental Status Exam Alert and Oriented to: Time, Place, Person Cognitive Function: Fair Patient Appearance: Well Groomed Mood: Hopeful, Euthymic Affect: Appropriate Patient Behavior: Cooperative Speech Pattern: Clear Voice Loudness: Normal, Limited Variation Thought Process: Goal Oriented Thought Disorder: Not Present Hallucinations: Denies Suicidal Ideation: Denies Homicidal Ideation: Denies Insight/Judgement: Fair Sleep: Fair Appetite: Good Muscle strength/Tone: Normal Gait/Station: Normal Psychiatric Treatment Plan - Problem List (1) Alcohol dependence Current Visit: Yes (2) Cocaine dependence Current Visit: Yes (3) Substance induced mood disorder Current Visit: Yes (4) Hyperlipidemia Current Visit: Yes (5) Hypertension Current Visit: Yes Qualifiers: Hypertension type: essential hypertension Qualified Code(s): I10 - Essential (primary) hypertension (6) Type 2 diabetes mellitus Current Visit: Yes Qualifiers: Diabetes mellitus complication status: without complication (7) Hx of hepatitis C Current Visit: Yes (8) Hx of CABG Current Visit: Yes (9) S/P angioplasty with stent Current Visit: Yes (10) Substance-induced sleep disorder Current Visit: Yes Initial treatment plan: Patient is discharged today and referred to [facility] for outpatient treatment
== END 2016-10-29 03:30 | disposition home or self-care (01) | DRG 895 ==
LOC: YASAS 13:47 → Y3W 16:01
PROVIDERS: ADMIT Psychiatry & Neurology Psychiatry; ATTEND Psychiatry & Neurology Psychiatry
PROC: HZ42ZZZ Group Counseling for Substance Abuse Treatment, Cognitive-Behavioral (ICD-10-PCS; principal; 2016-10-19)
DX: F11.20 Opioid dependence, uncomplicated (principal); F14.20 Cocaine dependence, uncomplicated; F19.282 Other psychoactive substance dependence with psychoactive substance-induced sleep disorder; F19.24 Other psychoactive substance dependence with psychoactive substance-induced mood disorder; E78.5 Hyperlipidemia, unspecified; E11.9 Type 2 diabetes mellitus without complications; I10 Essential (primary) hypertension; I25.10 Atherosclerotic heart disease of native coronary artery without angina pectoris; B18.2 Chronic viral hepatitis C; Z95.1 Presence of aortocoronary bypass graft; Z95.5 Presence of coronary angioplasty implant and graft; Z87.898 Personal history of other specified conditions
CPT/HCPCS: 81003; 93005; 93010

== ENCOUNTER 2017-01-14 10:17 | Inpatient (IN) | payer OTHER ==
[2017-01-14 11:37] VITALS: BMI 19.8
--- NOTE | 2017-01-14 14:26 | HP ---
CIWA Score - CIWA Score Nausea/Vomitin Muscle Tremors: 3 Anxiety: 2 Agitation: 2 Paroxysmal Sweats: 1-Minimal Palms Moist Orientation: 0-Oriented Tacttile Disturbances: 2-Mild Itch/Numbness/Burn Auditory Disturbances: 0-None Visual Disturbances: 0-None Headache: 0-None Present CIWA-Ar Total Score: 12 Admission ROS BHS - HPI Chief Complaint: I need help to stop using drugs and alcohol. Allergies/Adverse Reactions: Allergies Allergy/AdvReac Type Severity Reaction Status Date / Time No Known Allergies Allergy Verified 01/14/17 12:10 History of Present Illness: 66 y/o m pt with h/o alcohol use since age [age] and cocaine use since age 33. Exam Limitations: No Limitations - Ebola screening Have you traveled outside of the country in the last 21 days: No Have you had contact with anyone from an Ebola affected area: No Have you been sick,other than usual withdrawal symptoms: No - Review of Systems Constitutional: Malaise, Changes in sleep EENT: reports: No Symptoms Reported Respiratory: reports: No Symptoms reported Cardiac: reports: No Symptoms Reported GI: reports: No Symptoms Reported : reports: No Symptoms Reported, Frequency Musculoskeletal: reports: No Symptoms Reported Integumentary: reports: No Symptoms Reported Neuro: reports: No Symptoms reported, Weakness Endocrine: reports: Increased Hunger, Increased Thirst, Increased Urine Hematology: reports: No Symptoms Reported Psychiatric: reports: Anxious, Depressed Other Systems: Reviewed and Negative Patient History - Patient Medical History Hx Anemia: Yes (NO CURRENT MED) Hx Asthma: No Hx Chronic Obstructive Pulmonary Disease (COPD): No Hx Cancer: No Hx Cardiac Disorders: Yes (2001-cad, 2 stents, 2010-cad ,angina, 09/2016- [place] ) Hx Congestive Heart Failure: No Hx Hypertension: Yes (metoprolol 100mg tid, ranexa 1000mg , isordil 30 QD) Hx Hypercholesterolemia: Yes (, asa 81mg , Plavix 75mg ) Hx Pacemaker: No HX Cerebrovascular Accident: No Hx Seizures: No Hx Dementia: No Hx Diabetes: Yes (NIDDM- metformin 500mg bid , januvia 25mg bid ) Hx Gastrointestinal Disorders: Yes (acid reflux) Hx Genitourinary Disorders: No Hx Sexually Transmitted Disorders: No Hx Renal Disease (ESRD): No Hx Thyroid Disease: No Hx Human Immunodeficiency Virus (HIV): No (NEGATIVE HX) Hx Hepatitis C: Yes (RECENTLY TREATED X 3 MONTHS COURSE) Hx Depression: Yes Hx Suicide Attempt: Yes (pill overdose in 2016) Hx Schizophrenia: No - Patient Surgical History Past Surgical History: Yes Hx Neurologic Surgery: No Hx Cataract Extraction: No Hx Cardiac Surgery: Yes (CABGx3 in 1996 stent in 2003 and in 2010) Hx Lung Surgery: No Hx Breast Surgery: No Hx Breast Biopsy: No Hx Abdominal Surgery: No Hx Appendectomy: No Hx Cholecystectomy: No Hx Genitourinary Surgery: No Hx Section: No Hx Orthopedic Surgery: No Anesthesia Reaction: No - PPD History Previous Implant?: Yes Documented Results: Negative w/proof Implanted On Prior [facility] Admission?: Yes Date: 10/16/16 Results: 0 mm - Reproductive History Patient is a Female of Child Bearing Age (11 -55 yrs old): No - Smoking Cessation Smoking history: Current some day smoker Have you smoked in the past 12 months: Yes Aproximately how many cigarettes per day: 1 Cigars Per Day: 0 Hx Chewing Tobacco Use: No Initiated information on smoking cessation: Yes 'Breaking Loose' booklet given: 01/14/17 - Substance & Tx. History Hx Alcohol Use: Yes Hx Substance Use: Yes Substance Use Type: Alcohol, Cocaine Hx Substance Use Treatment: Yes () - Substances Abused Crack Route: Smoking Frequency: 3-6 times per week Amount used: $20-30 Age of first use: 34 Date of Last Use: 01/13/17 Alcohol-vodka Route: Oral Frequency: 3-6 times per week Amount used: vodka 1 pt. Age of first use: 15 Date of Last Use: 01/13/17 Family Disease History - Family Disease History Family Disease History: Diabetes: Grandparent (MGF-), Mother (HTN- ), Heart Disease: Father Admission Physical Exam BHS - Vital Signs Vital Signs: Vital Signs - 24 hr 01/14/17 11:36 Temperature 95.6 F L Pulse Rate 74 Respiratory 20 Rate Blood Pressure 156/73 66 y/o m pt aox3 in nad anxious. - Physical General Appearance: Yes: Appropriately Dressed, Disheveled, Thin, Anxious HEENTM: Yes: EOMI, Hearing grossly Normal, Normocephalic, Normal Voice, [place] Respiratory: Yes: Chest Non-Tender, Lungs Clear, Normal Breath Sounds, No Respiratory Distress Neck: Yes: Supple, Trachea in good position Breast: Yes: Within Normal Limits Cardiology: Yes: Regular Rhythm, Regular Rate, S1, S2 Abdominal: Yes: Non Tender, Flat, Soft, Increased Bowel Sounds Genitourinary: Yes: Frequency Back: Yes: Decreased Range of Motion Musculoskeletal: Yes: Muscle weakness Extremities: Yes: Tremors Neurological: Yes: hr operations advisor II-XII NML intact, Fully Oriented, Alert Integumentary: Yes: Moist Lymphatic: Yes: Within Normal Limits - Diagnostic (1) Cocaine dependence Current Visit: Yes Status: Chronic (2) Alcohol dependence with uncomplicated withdrawal Current Visit: Yes Status: Chronic (3) Hx of hepatitis C Current Visit: Yes Status: Chronic (4) Hyperlipidemia Current Visit: Yes Status: Chronic (5) Hypertension Current Visit: Yes Status: Chronic Qualifiers: Hypertension type: essential hypertension Qualified Code(s): I10 - Essential (primary) hypertension; I10 - Essential (primary) hypertension; I10 - Essential (primary) hypertension (6) S/P angioplasty with stent Current Visit: No Status: Chronic (7) Type 2 diabetes mellitus Current Visit: Yes Status: Chronic Qualifiers: Diabetes mellitus complication status: without complication Cleared for Admission S - Detox or Rehab [facility] Level of Care: Medically Managed Detox Regimen/Protocol: Librium S Breath Alcohol Content Breath Alcohol Content: 0 Urine Drug Screen - Results Drug Screen Negative: No Urine Drug Screen Results: MAHAD-Cocaine
[2017-01-14] MEDS ORDERED: MAGNESIUM CITRATE 300 ML BOTTLE PO PRN (14:49)
[2017-01-14] MEDS ORDERED: chlordiazePOXIDE HCL 25 MG CAPSULE PO PRN (14:49)
[2017-01-14] MEDS ORDERED: MAG HYDROX/AL HYDROX/SIMETH 30 ML UNIT-DOSE CUP PO PRN (14:49)
[2017-01-14] MEDS ORDERED: ACETAMINOPHEN 325 MG TABLET (FP) PO PRN (14:49)
[2017-01-14] MEDS ORDERED: NICOTINE POLACRILEX 2 MG GUM BUC PRN (14:49)
[2017-01-14] MEDS ORDERED: P-EPHED 60MG/TRIPROLIDI 2.5MG TABLET PO PRN (14:49)
[2017-01-14] MEDS ORDERED: LOPERAMIDE HCL 2 MG CAPSULE PO PRN (14:49)
[2017-01-14] MEDS ORDERED: guaiFENesin/D-METHORPHAN HB 10 ML UNIT-DOSE CUPS PO PRN (14:49)
[2017-01-14] MEDS ORDERED: diphenhydrAMINE HCL 50 MG CAPSULE PO PRN (14:49)
[2017-01-14] MEDS ORDERED: MAGNESIUM HYDROX 2400MG/30ML ORAL SUSPENSION 30 ML CUP PO PRN (14:49)
[2017-01-14] MEDS ORDERED: IBUPROFEN 400 MG TABLET (FP) PO PRN (14:49)
[2017-01-14] MEDS ORDERED: hydrOXYzine PAMOATE 25 MG CAPSULE (FP) PO PRN (14:49)
[2017-01-14] MEDS ORDERED: MENTHOL/PHENOL 1 EACH UD MM PRN (14:49)
[2017-01-14] MEDS ORDERED: INSULIN SLIDING SCALE (NOVOLOG) 1 VIAL SQ SCH (16:30)
[2017-01-14 16:56] LABS: HIV 1 & 2 AB NEGATIVE; HIV 1 AGp24 NEGATIVE
[2017-01-14] MEDS: chlordiazePOXIDE HCL 25 MG CAPSULE PO SCH ×2 (18:20→22:45)
[2017-01-14] MEDS: sitaGLIPtin PHOSPHATE 25 MG TABLET (FP) PO SCH (18:21)
[2017-01-14] MEDS: metFORMIN HCL 500 MG TABLET (FP) PO SCH (18:21)
[2017-01-14 19:00] LABS: URINE APPEARANCE SLCLOUDY; URINE BILIRUBIN NEGATIVE (NEGATIVE); URINE BLOOD NEGATIVE (NEGATIVE); URINE COLOR DKYELLOW; URINE GLUCOSE (UA) 1+ (NEGATIVE); URINE KETONE NEGATIVE (NEGATIVE); URINE NITRITE NEGATIVE (NEGATIVE); URINE PROTEIN NEGATIVE (NEGATIVE); URINE UROBILINOGEN NEGATIVE mg/dL (0.2-1.0)
[2017-01-14 21:27] LABS: URINE LEUK ESTERASE Negative (NEGATIVE)
[2017-01-14] MEDS ORDERED: ATORVASTATIN CA 80 MG TABLET (FP) PO SCH (22:00)
[2017-01-14] MEDS: RANOLAZINE E.R. 500 MG TABLET (FP) PO SCH (22:44)
[2017-01-14] MEDS: ATORVASTATIN CA 40 MG TABLET (FP) PO SCH (22:45)
[2017-01-14] MEDS: THIAMINE HCL 100 MG TABLET (FP) PO SCH (22:45)
[2017-01-14] MEDS: METOPROLOL TARTRATE 50 MG TABLET (FP) PO SCH (22:45)
[2017-01-15] MEDS: METOPROLOL TARTRATE 50 MG TABLET (FP) PO SCH ×3 (05:23→22:26)
[2017-01-15] MEDS: chlordiazePOXIDE HCL 25 MG CAPSULE PO SCH ×4 (05:23→22:26)
[2017-01-15] MEDS: metFORMIN HCL 500 MG TABLET (FP) PO SCH ×2 (06:31→16:53)
[2017-01-15] MEDS: INSULIN SLIDING SCALE (NOVOLOG) 1 VIAL SQ SCH ×2 (06:32→17:20)
[2017-01-15] MEDS: sitaGLIPtin PHOSPHATE 25 MG TABLET (FP) PO SCH ×2 (06:32→16:53)
[2017-01-15] MEDS: CLOPIDOGREL BISULFATE 75 MG TABLET (FP) PO SCH (10:26)
[2017-01-15] MEDS: ASPIRIN 81 MG CHEWABLE TABLETS PO SCH (10:26)
[2017-01-15] MEDS: ISOSORBIDE MONONITRATE 30 MG TAB.SR.24H (FP) PO SCH (10:26)
[2017-01-15] MEDS: PRENATAL VITAMINS W/ FOLIC ACID TABLET (FP) PO SCH (10:26)
[2017-01-15] MEDS: RANOLAZINE E.R. 500 MG TABLET (FP) PO SCH ×2 (10:27→22:26)
[2017-01-15 11:14] LABS: ALBUMIN 3.9 g/dl (3.4-5.0); ANION GAP 9 (8-16); CALCIUM 9.2 mg/dL (8.5-10.1); CO2 29 mmol/L (21-32); GLUCOSE,RANDOM 206 mg/dL (74-106)
[2017-01-15 11:17] LABS: ALK PHOS 43 U/L (45-117); BILIRUBIN,TOTAL 0.6 mg/dL (0.2-1.0); CREATININE 0.9 mg/dL (0.7-1.3); SGOT/AST 17 U/L (15-37); SGPT/ALT 22 U/L (12-78); TOT PROT 7.5 g/dl (6.4-8.2)
[2017-01-15 11:25] LABS: MCH 32.4 pg (25.7-33.7); MCHC 34.4 g/dl (32.0-35.9); MEAN CELL VOLUME 94.3 fl (80-96); MEAN PLT VOLUME 9.7 fl (7.5-11.1); PLATELET COUNT 168 K/MM3 (134-434); RDW 12.9 % (11.9-15.9); WHITE BLOOD COUNT 6.8 K/mm3 (4.0-10.0)
--- NOTE | 2017-01-15 12:02 | PN ---
S CIWA - CIWA Score Nausea/Vomitin Muscle Tremors: 3 Anxiety: 3 Agitation: 2 Paroxysmal Sweats: 1-Minimal Palms Moist Orientation: 0-Oriented Tacttile Disturbances: 1-Very Mild Itch/Numbness Auditory Disturbances: 1-Very Mild Visual Disturbances: 0-None Headache: 2-Mild CIWA-Ar Total Score: 16 BHS Progress Note (SOAP) Subjective: ALERT,IRRITABLE,ANXIOUS,INTERRUPTED SLEEP,TREMOR,PAIN IN THE BODY Objective: 01/15/17 12:00 Vital Signs Temperature 96.2 F L 01/15/17 10:19 Pulse Rate 68 01/15/17 10:19 Respiratory Rate 18 01/15/17 10:19 Blood Pressure 138/71 01/15/17 10:19 O2 Sat by Pulse Oximetry (%) EKG NSR INVERTED T IN AVL NO CHEST PAIN,NO SOB,NO DIZZINESS Laboratory Last Values WBC 6.8 K/mm3 (4.0-10.0) 01/15/17 06:08 RBC 4.16 M/mm3 (4.00-5.60) 01/15/17 06:08 Hgb 13.5 GM/dL (11.7-16.9) 01/15/17 06:08 Hct 39.2 % (35.4-49) 01/15/17 06:08 MCV 94.3 fl (80-96) 01/15/17 06:08 MCH 32.4 pg (25.7-33.7) 01/15/17 06:08 MCHC 34.4 g/dl (32.0-35.9) 01/15/17 06:08 RDW 12.9 % (11.9-15.9) 01/15/17 06:08 Plt Count 168 K/MM3 (134-434) 01/15/17 06:08 MPV 9.7 fl (7.5-11.1) 01/15/17 06:08 Sodium 138 mmol/L (136-145) 01/15/17 06:08 Potassium 4.3 mmol/L (3.5-5.1) 01/15/17 06:08 Chloride 100 mmol/L (98-107) 01/15/17 06:08 Carbon Dioxide 29 mmol/L (21-32) 01/15/17 06:08 Anion Gap 9 (8-16) 01/15/17 06:08 BUN 17 mg/dL (7-18) 01/15/17 06:08 Creatinine 0.9 mg/dL (0.7-1.3) 01/15/17 06:08 Creat Clearance w eGFR > 60 (>60) 01/15/17 06:08 POC Glucometer 232 UNITS (()) 01/14/17 12:34 Random Glucose 206 mg/dL (74-106) H D 01/15/17 06:08 Calcium 9.2 mg/dL (8.5-10.1) 01/15/17 06:08 Total Bilirubin 0.6 mg/dL (0.2-1.0) 01/15/17 06:08 AST 17 U/L (15-37) 01/15/17 06:08 ALT 22 U/L (12-78) 01/15/17 06:08 Alkaline Phosphatase 43 U/L (45-117) L 01/15/17 06:08 Total Protein 7.5 g/dl (6.4-8.2) 01/15/17 06:08 Albumin 3.9 g/dl (3.4-5.0) 01/15/17 06:08 Urine Color Dkyellow 01/14/17 17:30 Urine Appearance Slcloudy 01/14/17 17:30 Urine pH 5.0 (5.0-8.0) 01/14/17 17:30 Ur Specific [place] 1.025 (1.005-1.025) 01/14/17 17:30 Urine Protein Negative (NEGATIVE) 01/14/17 17:30 Urine Glucose (UA) 1+ (NEGATIVE) H 01/14/17 17:30 Urine Ketones Negative (NEGATIVE) 01/14/17 17:30 Urine Blood Negative (NEGATIVE) 01/14/17 17:30 Urine Nitrite Negative (NEGATIVE) 01/14/17 17:30 Urine Bilirubin Negative (NEGATIVE) 01/14/17 17:30 Urine Urobilinogen Negative mg/dL (0.2-1.0) 01/14/17 17:30 Ur Leukocyte Esterase Negative (NEGATIVE) 01/14/17 17:30 HIV 1&2 Antibody Screen Negative 01/14/17 12:30 HIV P24 Antigen Negative 01/14/17 12:30 Assessment: 01/15/17 12:01 WITHDRAWAL SYMPTOM Plan: CONTINUE DETOX,BGM MONITORING,PSYCHIATRIC CONSULTATION FOR DEPRESSION
--- NOTE | 2017-01-15 16:07 | CONSULT ---
[facility] Psychiatric Consult - Data Date of interview: 01/15/17 Admission source: [facility] Identifying data: Readmission to [facility] for this 66 y/o [place]-born male seeking detox treatment on for alcohol and cocaine dependence.Patient is single without children,homeless,unemployed and supported on food stamps. Substance Abuse History: Patient confirms active use of cocaine and alcohol as detailed in this [facility] report : Smoking history: Current some day smoker. Have you smoked in the past 12 months: Yes. Aproximately how many cigarettes per day : 1. Cigars Per Day: 0. Hx Chewing Tobacco Use: No. Initiated information on smoking cessation: Yes. 'Breaking Loose' booklet given: 01/14/17. - Substance & Tx. History. Hx Alcohol Use: Yes. Hx Substance Use: Yes. Substance Use Type : Alcohol, Cocaine. Hx Substance Use Treatment: Yes (). - Substances Abused. Crack. Route: Smoking. Frequency: 3-6 times per week. Amount used: $20-30. Age of first use: 34. Date of Last Use: 01/13/17. Alcohol-vodka. Route: Oral. Frequency: 3-6 times per week. Amount used: vodka 1 pt. Age of first use: 15. Date of Last Use: 01/13/17 Medical History: Multiple medical co-morbidities : coronary artery disease,past history of triple bypass,hypercholesterolemia,hepatitis C,anemia,weight loss, GERD,hypertension and diabetes mellitus. Psychiatric History: History of psychiatric hospitalizations many years ago ([facility]).Diagnosed with MDD and Anxiety Disorder.History of trials of SSRI drugs.Mr Michael dropped out of OPD care several months ago and he indicates his intent to abstain from psychotropic medications.History of one suicide attempt via overdose with trazodone four years ago ( of his dog). Physical/Sexual Abuse/Trauma History: No reported history of abuse. Additional Comment: Urine Drug Screen Results: MAHAD-Cocaine.Noted. Mental Status Exam - Mental Status Exam Alert and Oriented to: Time, Place, Person Cognitive Function: Good Patient Appearance: Well Groomed (thin habitus) Mood: Withdrawn, Hopeful Affect: Appropriate, Normal Range Patient Behavior: Fatigued, Appropriate Speech Pattern: Clear, Appropriate Voice Loudness: Normal Thought Process: Intact, Goal Oriented Thought Disorder: Not Present Hallucinations: Denies Suicidal Ideation: Denies Homicidal Ideation: Denies Insight/Judgement: Poor Sleep: Poorly, Difficulty falling asleep (wants ambien ) Appetite: Poor, Weight loss Muscle strength/Tone: Normal Gait/Station: Normal Psychiatric Findings - Problem List ([place] 1, 2,3) (1) Alcohol dependence with uncomplicated withdrawal Current Visit: Yes Status: Acute (2) Cocaine dependence Current Visit: Yes Status: Acute (3) Nicotine dependence Current Visit: Yes Status: Acute (4) Substance induced mood disorder Current Visit: Yes Status: Acute (5) Hx of hepatitis C Current Visit: Yes Status: Chronic (6) Hyperlipidemia Current Visit: Yes Status: Chronic (7) Hypertension Current Visit: Yes Status: Chronic Qualifiers: Hypertension type: essential hypertension Qualified Code(s): I10 - Essential (primary) hypertension; I10 - Essential (primary) hypertension; I10 - Essential (primary) hypertension (8) Type 2 diabetes mellitus Current Visit: Yes Status: Chronic Qualifiers: Diabetes mellitus complication status: without complication (9) Hx of CABG Current Visit: No Status: Chronic (10) S/P angioplasty with stent Current Visit: No Status: Chronic (11) Weight loss observed on examination Current Visit: Yes Status: Chronic (12) Insomnia Current Visit: Yes Status: Acute - Initial Treatment Plan Initial Treatment Plan: Psychoeducation.Detoxification.Ambien 10 mg po hs prn.Side effects/benefits discussed with the patient.He agrees with careplan.Observation.
[2017-01-15] MEDS: ZOLPIDEM TARTRATE 5 MG TABLET PO PRN (22:26)
[2017-01-15] MEDS: THIAMINE HCL 100 MG TABLET (FP) PO SCH (22:26)
[2017-01-15] MEDS: ATORVASTATIN CA 40 MG TABLET (FP) PO SCH (22:27)
[2017-01-16] MEDS: chlordiazePOXIDE HCL 25 MG CAPSULE PO SCH ×2 (05:29→10:35)
[2017-01-16] MEDS: METOPROLOL TARTRATE 50 MG TABLET (FP) PO SCH ×3 (05:29→22:19)
[2017-01-16] MEDS: INSULIN SLIDING SCALE (NOVOLOG) 1 VIAL SQ SCH ×2 (07:35→18:12)
[2017-01-16] MEDS: metFORMIN HCL 500 MG TABLET (FP) PO SCH ×2 (07:48→17:18)
[2017-01-16] MEDS: sitaGLIPtin PHOSPHATE 25 MG TABLET (FP) PO SCH ×2 (07:49→17:18)
--- NOTE | 2017-01-16 09:13 | EKG ---
Test Reason : Blood Pressure : / mmHG Vent. Rate : 072 BPM Atrial Rate : 072 BPM P-R Int : 162 ms QRS Dur : 090 ms QT Int : 408 ms P-R-T Axes : 073 006 097 degrees QTc Int : 446 ms NORMAL SINUS RHYTHM ABNORMAL QRS-T ANGLE, CONSIDER PRIMARY T WAVE ABNORMALITY ABNORMAL ECG WHEN COMPARED WITH ECG OF 19-OCT-2016 20:35, [place] INTERVAL HAS DECREASED Confirmed by ISAAC WASHINGTON, BOY ([id number]) on 01/16/2017 9:13:00 AM Referred By: Confirmed By:BOY GRAY MD
[2017-01-16] MEDS: ISOSORBIDE MONONITRATE 30 MG TAB.SR.24H (FP) PO SCH (10:35)
[2017-01-16] MEDS: CLOPIDOGREL BISULFATE 75 MG TABLET (FP) PO SCH (10:35)
[2017-01-16] MEDS: PRENATAL VITAMINS W/ FOLIC ACID TABLET (FP) PO SCH (10:35)
[2017-01-16] MEDS: ASPIRIN 81 MG CHEWABLE TABLETS PO SCH (10:35)
[2017-01-16] MEDS: RANOLAZINE E.R. 500 MG TABLET (FP) PO SCH ×2 (10:36→22:20)
--- NOTE | 2017-01-16 11:39 | PN ---
S CIWA - CIWA Score Nausea/Vomitin Muscle Tremors: 3 Anxiety: 3 Agitation: 2 Paroxysmal Sweats: 1-Minimal Palms Moist Orientation: 0-Oriented Tacttile Disturbances: 1-Very Mild Itch/Numbness Auditory Disturbances: 1-Very Mild Visual Disturbances: 0-None Headache: 2-Mild CIWA-Ar Total Score: 16 BHS Progress Note (SOAP) Subjective: ALERT,IRRITABLE,ANXIOUS,INTERRUPTED SLEEP,TREMOR Objective: 01/16/17 11:38 Vital Signs Temperature 96.6 F L 01/16/17 10:00 Pulse Rate 71 01/16/17 10:00 Respiratory Rate 16 01/16/17 10:00 Blood Pressure 122/71 01/16/17 10:00 O2 Sat by Pulse Oximetry (%) Laboratory Last Values WBC 6.8 K/mm3 (4.0-10.0) 01/15/17 06:08 RBC 4.16 M/mm3 (4.00-5.60) 01/15/17 06:08 Hgb 13.5 GM/dL (11.7-16.9) 01/15/17 06:08 Hct 39.2 % (35.4-49) 01/15/17 06:08 MCV 94.3 fl (80-96) 01/15/17 06:08 MCH 32.4 pg (25.7-33.7) 01/15/17 06:08 MCHC 34.4 g/dl (32.0-35.9) 01/15/17 06:08 RDW 12.9 % (11.9-15.9) 01/15/17 06:08 Plt Count 168 K/MM3 (134-434) 01/15/17 06:08 MPV 9.7 fl (7.5-11.1) 01/15/17 06:08 Sodium 138 mmol/L (136-145) 01/15/17 06:08 Potassium 4.3 mmol/L (3.5-5.1) 01/15/17 06:08 Chloride 100 mmol/L (98-107) 01/15/17 06:08 Carbon Dioxide 29 mmol/L (21-32) 01/15/17 06:08 Anion Gap 9 (8-16) 01/15/17 06:08 BUN 17 mg/dL (7-18) 01/15/17 06:08 Creatinine 0.9 mg/dL (0.7-1.3) 01/15/17 06:08 Creat Clearance w eGFR > 60 (>60) 01/15/17 06:08 POC Glucometer 178 UNITS (()) 01/15/17 16:47 Random Glucose 206 mg/dL (74-106) H D 01/15/17 06:08 Calcium 9.2 mg/dL (8.5-10.1) 01/15/17 06:08 Total Bilirubin 0.6 mg/dL (0.2-1.0) 01/15/17 06:08 AST 17 U/L (15-37) 01/15/17 06:08 ALT 22 U/L (12-78) 01/15/17 06:08 Alkaline Phosphatase 43 U/L (45-117) L 01/15/17 06:08 Total Protein 7.5 g/dl (6.4-8.2) 01/15/17 06:08 Albumin 3.9 g/dl (3.4-5.0) 01/15/17 06:08 Urine Color Dkyellow 01/14/17 17:30 Urine Appearance Slcloudy 01/14/17 17:30 Urine pH 5.0 (5.0-8.0) 01/14/17 17:30 Ur Specific [place] 1.025 (1.005-1.025) 01/14/17 17:30 Urine Protein Negative (NEGATIVE) 01/14/17 17:30 Urine Glucose (UA) 1+ (NEGATIVE) H 01/14/17 17:30 Urine Ketones Negative (NEGATIVE) 01/14/17 17:30 Urine Blood Negative (NEGATIVE) 01/14/17 17:30 Urine Nitrite Negative (NEGATIVE) 01/14/17 17:30 Urine Bilirubin Negative (NEGATIVE) 01/14/17 17:30 Urine Urobilinogen Negative mg/dL (0.2-1.0) 01/14/17 17:30 Ur Leukocyte Esterase Negative (NEGATIVE) 01/14/17 17:30 RPR Titer Nonreactive (NONREACTIVE) 01/15/17 06:08 HIV 1&2 Antibody Screen Negative 01/14/17 12:30 HIV P24 Antigen Negative 01/14/17 12:30 Assessment: 01/16/17 11:39 WITHDRAWAL SYMPTOM Plan: CONTINUE DETOX
[2017-01-16] MEDS: chlordiazePOXIDE 5 MG CAPSULE PO SCH ×2 (17:18→22:19)
[2017-01-16] MEDS: THIAMINE HCL 100 MG TABLET (FP) PO SCH (22:19)
[2017-01-16] MEDS: ATORVASTATIN CA 40 MG TABLET (FP) PO SCH (22:19)
[2017-01-16] MEDS: ZOLPIDEM TARTRATE 5 MG TABLET PO PRN (22:19)
[2017-01-17] MEDS: METOPROLOL TARTRATE 50 MG TABLET (FP) PO SCH ×3 (05:26→22:19)
[2017-01-17] MEDS: chlordiazePOXIDE 5 MG CAPSULE PO SCH ×2 (05:26→10:22)
[2017-01-17] MEDS: metFORMIN HCL 500 MG TABLET (FP) PO SCH ×2 (07:53→16:44)
[2017-01-17] MEDS: sitaGLIPtin PHOSPHATE 25 MG TABLET (FP) PO SCH ×2 (07:54→16:45)
[2017-01-17] MEDS: INSULIN SLIDING SCALE (NOVOLOG) 1 VIAL SQ SCH ×2 (07:55→16:42)
--- NOTE | 2017-01-17 09:48 | PN ---
S Progress Note (SOAP) Subjective: ALERT,IRRITABLE,INTERRUPTED SLEEP Objective: 01/17/17 09:46 Vital Signs Temperature 98.6 F 01/17/17 09:36 Pulse Rate 72 01/17/17 09:36 Respiratory Rate 18 01/17/17 09:36 Blood Pressure 129/66 01/17/17 09:36 O2 Sat by Pulse Oximetry (%) Assessment: 01/17/17 09:47 WITHDRAWAL SYMPTOM Plan: CONTINUE DETOX,DISCHARGE IN AM
[2017-01-17] MEDS: PRENATAL VITAMINS W/ FOLIC ACID TABLET (FP) PO SCH (10:22)
[2017-01-17] MEDS: RANOLAZINE E.R. 500 MG TABLET (FP) PO SCH ×2 (10:22→22:19)
[2017-01-17] MEDS: CLOPIDOGREL BISULFATE 75 MG TABLET (FP) PO SCH (10:22)
[2017-01-17] MEDS: ASPIRIN 81 MG CHEWABLE TABLETS PO SCH (10:22)
[2017-01-17] MEDS: ISOSORBIDE MONONITRATE 30 MG TAB.SR.24H (FP) PO SCH (10:26)
[2017-01-17] MEDS: chlordiazePOXIDE HCL 10 MG CAPSULE PO SCH ×2 (16:46→22:19)
[2017-01-17] MEDS: ATORVASTATIN CA 40 MG TABLET (FP) PO SCH (22:19)
[2017-01-17] MEDS: ZOLPIDEM TARTRATE 5 MG TABLET PO PRN (22:19)
[2017-01-17] MEDS: THIAMINE HCL 100 MG TABLET (FP) PO SCH (22:20)
[2017-01-18] MEDS: chlordiazePOXIDE HCL 10 MG CAPSULE PO SCH (05:25)
[2017-01-18] MEDS: METOPROLOL TARTRATE 50 MG TABLET (FP) PO SCH (05:25)
[2017-01-18 06:09] VITALS: BP 123/59; PULSE 69; TEMP 96.6
[2017-01-18] MEDS: metFORMIN HCL 500 MG TABLET (FP) PO SCH (07:17)
[2017-01-18] MEDS: sitaGLIPtin PHOSPHATE 25 MG TABLET (FP) PO SCH (07:17)
[2017-01-18] MEDS: INSULIN SLIDING SCALE (NOVOLOG) 1 VIAL SQ SCH (07:52)
--- NOTE | 2017-01-18 08:35 | DS ---
[facility] Detox Discharge Summary Admission Date: 01/14/17 Discharge Date: 01/18/17 - History Present History: Alcohol Dependence, Cocaine Dependence Pertinent Past History: HYPERTENSION HEPATITIS C HYPERLIPIDEMIA S/P ANGIOPLASTY WITH STENT TYPE 2 DM DEPRESSION - Physical Exam Results Vital Signs: Vital Signs Temperature 96.6 F L 01/18/17 06:00 Pulse Rate 69 01/18/17 06:00 Respiratory Rate 18 01/18/17 06:00 Blood Pressure 123/59 01/18/17 06:00 O2 Sat by Pulse Oximetry (%) Pertinent Admission Physical Exam Findings: WITHDRAWAL SYMPTOM - Treatment Hospital Course: Detox Protocol Followed, Detoxed Safely, Responded well, Discharged Condition Good Patient has Accepted a Rehab Referral to: [facility]CL[facility] - Medication Discharge Medications: Ambulatory Orders Multivitamin [Poly-Vitamin] 1 each PO DAILY 10/14/16 Aspirin [ASA -] 81 mg PO DAILY #30 mg 10/18/16 Clopidogrel Bisulfate [Clopidogrel] 75 mg PO DAILY #30 mg 10/18/16 Isosorbide Mononitrate [Imdur -] 30 mg PO DAILY #30 mg 10/18/16 Metformin HCl [Glucophage -] 500 mg PO BID #60 mg 10/18/16 Ranolazine [Ranexa -] 1,000 mg PO DAILY #30 mg 10/18/16 Sitagliptin Phosphate [Januvia -] 25 mg PO BID #60 mg 10/18/16 Atorvastatin Calcium 80 mg PO HS 01/14/17 Metoprolol Tartrate [Lopressor] 100 mg PO TID 01/14/17 - Diagnosis (1) Alcohol dependence with uncomplicated withdrawal Current Visit: Yes Status: Acute (2) Cocaine dependence Current Visit: Yes Status: Acute (3) Nicotine dependence Current Visit: Yes Status: Acute (4) Substance induced mood disorder Current Visit: Yes Status: Acute (5) Hx of hepatitis C Current Visit: Yes Status: Chronic (6) Hyperlipidemia Current Visit: Yes Status: Chronic (7) Hypertension Current Visit: Yes Status: Chronic Qualifiers: Hypertension type: essential hypertension Qualified Code(s): I10 - Essential (primary) hypertension; I10 - Essential (primary) hypertension; I10 - Essential (primary) hypertension (8) Type 2 diabetes mellitus Current Visit: Yes Status: Chronic Qualifiers: Diabetes mellitus complication status: without complication (9) S/P angioplasty with stent Current Visit: No Status: Chronic
[2017-01-18] MEDS: ASPIRIN 81 MG CHEWABLE TABLETS PO SCH (09:00)
[2017-01-18] MEDS: CLOPIDOGREL BISULFATE 75 MG TABLET (FP) PO SCH (09:01)
[2017-01-18] MEDS: RANOLAZINE E.R. 500 MG TABLET (FP) PO SCH (09:01)
[2017-01-18] MEDS: PRENATAL VITAMINS W/ FOLIC ACID TABLET (FP) PO SCH (09:01)
[2017-01-18] MEDS: ISOSORBIDE MONONITRATE 30 MG TAB.SR.24H (FP) PO SCH (09:01)
== END 2017-01-18 09:01 | disposition home or self-care (01) | DRG 897 ==
LOC: YASAS 10:17 → Y6N 13:38
PROVIDERS: ADMIT Internal Medicine; ATTEND Internal Medicine
PROC: HZ2ZZZZ Detoxification Services for Substance Abuse Treatment (ICD-10-PCS; principal; 2017-01-14)
DX: F10.230 Alcohol dependence with withdrawal, uncomplicated (principal); F14.20 Cocaine dependence, uncomplicated; Z68.1 Body mass index [BMI] 19.9 or less, adult; F17.210 Nicotine dependence, cigarettes, uncomplicated; F19.24 Other psychoactive substance dependence with psychoactive substance-induced mood disorder; I10 Essential (primary) hypertension; E11.9 Type 2 diabetes mellitus without complications; E78.5 Hyperlipidemia, unspecified; B18.2 Chronic viral hepatitis C; Z95.1 Presence of aortocoronary bypass graft; Z95.5 Presence of coronary angioplasty implant and graft; G47.00 Insomnia, unspecified; R63.4 Abnormal weight loss
CPT/HCPCS: 36415; 80053; 81003; 85027; 86593; 87389; 93005; 93010